=== PATIENT | male | born 1950 | race Two or more races ===

== ENCOUNTER → 2017-10-10 18:30 | Outpatient (CLI) | payer MEDICARE, OTHER, SELFPAY ==
[2017-10-10 21:44] LABS: M R Staph aureus DNA By PCR Negative (Negative); Probe Check PASS; Staph aureus DNA By PCR POSITIVE (Negative)
== END ==
PROVIDERS: Visit Provider Podiatrist
DX: L97.512 Non-pressure chronic ulcer of other part of right foot with fat layer exposed (principal); L03.031 Cellulitis of right toe; M79.674 Pain in right toe(s)
CPT/HCPCS: 87070; 87077; 87186; 87205; 87640

== ENCOUNTER 2024-02-24 14:03 | Emergency (ER) | payer MEDICARE, SELFPAY ==
[2024-02-24 14:06] VITALS: BP 115/86; PULSE 81; RESP 18; TEMP 36.4; O2SAT 98; BMI 25.9
--- NOTE | 2024-02-24 14:35 | EX.ED.DYSGE1 ---
HPI History of Present Illness Chief Complaint: Complaint [facility] Medical History (Updated 02/24/24 @ 16:[address] Herberth Richardson, DO) Cataracts, bilateral History of UTI Urinary frequency Nocturia Hematuria Shoulder pain Obesity Prediabetes IBS (irritable bowel syndrome) Hyperlipidemia Orthostatic hypertension HTN (hypertension) History of CVA (cerebrovascular accident) Cervical spine arthritis Cervical spinal stenosis Central apnea HALIE (obstructive sleep apnea) BPH with urinary obstruction Atrial flutter Allergic rhinitis Home Medications ?Medication ?Instructions ?Recorded ?Last Taken ?Type metoprolol tartrate 25 mg tablet 25 mg PO BID 05/01/19 Unknown History aspirin 81 mg chewable tablet 1 tab PO DAILY 05/08/19 Unknown History pravastatin 80 mg tablet 80 mg PO QHS 03/25/20 Unknown History acetaminophen 500 mg capsule 1,000 mg PO TID 02/24/24 Unknown History bisacodyl 10 mg rectal suppository 10 mg [place] DAILY PRN constipation 02/24/24 Unknown History (Laxative (bisacodyl)) cephalexin 500 mg capsule 500 mg PO TID #20 caps 02/24/24 Unknown Rx cholecalciferol (vitamin D3) 50 2,000 unit PO DAILY 02/24/24 Unknown History mcg (2,000 unit) capsule clopidogrel 75 mg tablet 75 mg PO DAILY 02/24/24 Unknown History furosemide 20 mg tablet 20 mg PO Q OTHER DAY 02/24/24 Unknown History loratadine 10 mg capsule (Allergy 10 mg PO DAILY 02/24/24 Unknown History Relief (loratadine)) melatonin 3 mg capsule 3 mg PO QHS 02/24/24 Unknown History omeprazole 20 mg capsule,delayed 20 mg PO DAILY 02/24/24 Unknown History release sulfamethoxazole 800 1 tab PO BID 7 days #14 tabs 02/24/24 Unknown Rx mg-trimethoprim 160 mg tablet (Bactrim DS) trazodone 150 mg tablet 150 mg PO QHS 02/24/24 Unknown History Allergy/AdvReac Type Severity Reaction Status Date / Time tamsulosin (From Flomax) Allergy Unknown Itching Verified 02/24/24 14:14 Family History Mother Breast cancer Colon cancer Father Cardiac disorder Other Myocardial infarction Surgical History History of umbilical hernia repair History of nasal septoplasty History of cystoscopy History of colonoscopy Social History (Updated 06/03/20 @ 19:[address] Peter Jameson MD) Smoking Status: Never smoker alcohol intake: former substance use type: does not use EXAM Physical Exam Const Vital Signs: 02/24/24 14:06 02/24/24 16:05 Temperature 97.6 F L Temperature Source Oral Pulse Rate 81 84 Respiratory Rate 18 16 Blood Pressure 115/86 H 123/79 H Blood Pressure Mean 95 93 Pulse Ox 98 96 Oxygen Delivery Method Room Air Room Air [facility] Narrative Medical decision making narrative: HISTORY OF PRESENT ILLNESS: 73-year-old male presents concern for hematuria. Per triage report patient is chronically catheterized. Per report at the [facility]'s penitentiary catheter was removed secondary to swelling of the penis. REVIEW OF SYSTEMS: Pertinent positives: Hematuria, penile swelling Pertinent negatives: Vomiting, fever PHYSICAL EXAM: Nursing triage notes reviewed, Vital signs reviewed Constitutional: please see mdm HENT: MMM Eyes: Pupils equal round and reactive to light, Extraocular muscles intact Neck: No stridor, no JVD, full neck ROM Lungs: Clear to auscultation, No wheezing or rales. No increased work of breathing, no conversational dyspnea, no accessory muscle use, no nasal flaring. No respiratory distress noted Heart: Regular rate and rhythm, No murmurs, No rubs and No gallops, 2+ distal pulses (radial, femoral, posterior tibial) in all extremities Abdomen: Soft, there is no tenderness, rigidity, rebound or guarding, no obvious peritoneal signs, no palpable pulsatile abdominal masses, no auscultated abdominal bruit : No CVAT performed news internship in room showed erythema and swelling noted to the glans penis and foreskin. The foreskin is easily retractable although it is tender to do so. No signs of paraphimosis or phimosis noted. There is no discharge. There is erosion noted to the urethral meatus likely secondary to chronic Gentile catheterization and poor position alteration at the patient's nursing facility. Extremities: No edema Neuro: No new focal neurological deficits, cranial nerves II through XII intact, 5/5 strength in all present extremities. Intact sensation to light touch in all present extremities, 2+ reflexes bilateral patella tendons. Skin: Erythema noted to the glans penis and foreskin. No perineal TTP, scrotal edema, crepitus or bullae. MEDICAL DECISION MAKING: Chief Complaint: Hematuria, penile swelling External records reviewed: Takes aspirin and Plavix Factors affecting care: n BPH Social determinants of health: [facility] resident History obtained from others: none Consults: none MDM Narrative: Patient was initially hemodynamically stable, afebrile nontoxic-appearing. Exam significant erythema tenderness and swelling noted to the glans penis consistent likely balanitis. There is no sign of paraphimosis or phimosis however. No sign of fungal infection. There is erosion noted to the urethral meatus. I considered the following differential diagnosis: Balanitis, UTI, kidney failure, urinary retention, Sunshine's gangrene. There is no clinical evidence suggest Sunshine's gangrene. Specifically no perineal tenderness, crepitus, bullae or tenderness out of proportion to exam. A Gentile catheter was placed given the patient's history of BPH and Frequent urinary retention. ALL IMAGES (IF OBTAINED) HAVE BEEN PERSONALLY REVIEWED AND INTERPRETED BY MYSELF. CBC with no leukocytosis to suggest demonstration, noted mild anemia, no thrombocytopenia Lactate is wnl indicating no end-organ hypoperfusion and/or hypoxia. BMP without evidence of significant electrolyte abnormalities, no anion gap, no acute kidney injury. Urinalysis without evidence of specific infection. Given erythema, swelling concern for bacterial balanitis of the glans and foreskin. Will give Keflex and Bactrim for broad coverage. Strict return precautions were discussed. Urology follow-up recommended. The patient and/or family, caregivers express understanding. The patient and/or family, caregivers agrees with the plan. Shared decision making: I will have a discussion with the patient and or visitors regarding risk/benefits of further testing or admission. They will be made aware of of the risk/benefits inherent in this decision they will be given the opportunity to voice understanding. Total critical care time today provided was at least 0 minutes. This excludes separately billable procedures. Critical care time (if documented) is secondary to the patient having high probability of clinically significant/life threatening deterioration in the patient's condition which required my urgent intervention. Impression: 1. Balanitis 2. Chronic Gentile catheters 3. History of BPH Dispo: Discharge to penitentiary This note was generated with Newsel[employer]ation software. It may contain incorrect words, spelling, and punctuation that were not noted in review of the chart prior to signing. Lab Data Labs: Laboratory Results - last 24 hr 02/24/24 02/24/24 15:09 15:10 WBC 10.2 RBC 3.64 L Hgb 11.2 L Hct 35.1 L MCV 96.4 H MCH 30.8 MCHC 31.9 L RDW Std Deviation 55.4 H RDW Coeff of Lisa 15.5 H Plt Count 239 MPV 10.6 Sodium 142 Potassium 4.0 Chloride 110 H Carbon Dioxide 25.0 Anion Gap 7 BUN 26 H Creatinine 0.91 Estim Creat Clear Calc 67.86 Est GFR (MDRD) Af Amer 105 Est GFR (MDRD) Non-Af 87 BUN/Creatinine Ratio 28.7 H Glucose 111 H Lactic Acid 1.4 Calcium 8.9 Urine Color Yellow Urine Clarity Clear Urine pH 6.0 Ur Specific [place] 1.015 Urine Protein 15 H Urine Glucose (UA) Normal Urine Ketones Negative Urine Occult Blood 150 H Urine Nitrite Negative Urine Bilirubin Negative Urine Urobilinogen Normal Ur Leukocyte Esterase 100 H Urine RBC 25-50 SEEN Urine WBC 0-5 SEEN Ur Squamous Epith Cells 0 SEEN Urine Bacteria 1+ Urine Mucus RARE Discharge Plan Triage Chief Complaint: Complaint ED Provider: Herberth Richardson Dx/Rx/DC Orders Clinical Impression: Acute balanitis due to infection Instructions: ED Balanitis Prescriptions: New cephalexin 500 mg capsule 500 mg PO TID Qty: 20 0RF sulfamethoxazole-trimethoprim [Bactrim DS] 800-160 mg tablet 1 tab PO BID 7 Days Qty: 14 0RF No Action aspirin 81 mg tablet,chewable 1 tab PO DAILY Patient Comments: Chew and swallow 1 tablet by mouth daily starting 04-24-2019 metoprolol tartrate 25 mg tablet 25 mg PO BID pravastatin 80 mg tablet 80 mg PO QHS acetaminophen 500 mg capsule 1,000 mg PO TID bisacodyl [Laxative (bisacodyl)] 10 mg suppository 10 mg MA DAILY PRN (Reason: constipation) furosemide 20 mg tablet 20 mg PO Q OTHER DAY Allergy Relief (loratadine) 10 mg capsule 10 mg PO DAILY melatonin 3 mg capsule 3 mg PO QHS omeprazole 20 mg capsule,delayed release(DR/EC) 20 mg PO DAILY clopidogrel 75 mg tablet 75 mg PO DAILY trazodone 150 mg tablet 150 mg PO QHS cholecalciferol (vitamin D3) 50 mcg (2,000 unit) capsule 2,000 unit PO DAILY Primary Care Provider: Justice Chen Referrals: Amado Edwards MD [Med Staff - Active Staff] - Activity Restrictions/Additional Instructions: Thank you for trusting us with your care today! Please take antibiotics as prescribed until course complete to alleviate glands and foreskin infection. Please take Tylenol (2 pills, 650 mg), ibuprofen (2 pills, 400 mg) every 6 hours as needed for pain and fever control. Please return to the emergency department if your symptoms change or worsen. Please follow with your primary care physician and urology for further outpatient evaluation and management. Print Language: [place] Disposition Disposition: Home, Self Care
[2024-02-24] MEDS: Ondansetron ODT 4 MG Tablet PO (15:09)
[2024-02-24] MEDS: Morphine 4 MG/ML Syringe IM (15:09)
[2024-02-24] MEDS: Lidocaine Jelly 2% 20 ML Syringe (URO-JET) 1 APPLIC TOPICAL (15:09)
[2024-02-24 15:17] LABS: Squamous Epithelial Cells - UA 0 SEEN /hpf (0-5)
[2024-02-24 15:20] LABS: Color, Urine Yellow (Yellow); Glucose, Dipstick Normal (Normal); Ketone-Dipstick Negative (Negative); Leukocyte Esterase-Dipstick 100 /ul (Negative); Nitrite-Dipstick Negative (Negative); Occult Blood-Urine 150 /ul (Negative); Protein-Dipstick 15 mg/dl (Negative); Specific Gravity, Urine 1.015 (1.002-1.030); Urine Bilirubin Dipstick Negative (Negative); Urine Clarity Clear (Clear); Urine Urobilinogen Normal (Normal)
[2024-02-24 15:28] LABS: Hematocrit 35.1 % (40-54); Hemoglobin 11.2 g/dL (13.0-16.5); Mean Corp Hgb Conc 31.9 g/dL (32-36); Mean Corpuscular Hgb 30.8 pg (27.0-32.0); Mean Corpuscular Volume 96.4 fL (80-94); Mean Platelet Vol. 10.6 fl (6.2-12.0); Platelet Count 239 K/mm3 (150-450); RBC Distribution Width CV 15.5 % (11.6-14.6); RBC Distribution Width SD 55.4 fl (35.1-43.9); Red Blood Count 3.64 M/mm3 (4.6-6.2); White Blood Count 10.2 K/mm3 (4.4-11.0)
[2024-02-24 15:43] LABS: Anion Gap 7 (5-15); BUN 26 mg/dL (7-18); BUN/Creat Ratio 28.7 RATIO (10-20); Calcium,Total 8.9 mg/dL (8.5-10.1); Chloride 110 mmol/L (98-107); Creatinine, Serum 0.91 mg/dL (0.70-1.30); EST Glomerular Filtration Rate 87 mL/min (>60); Est Glom Filt Rate - Afr Amer 105 mL/min (>60); Estimated Creatinine Clearance 67.86 ml/min; Glucose 111 mg/dL (74-106); Sodium Level 142 mmol/L (136-145)
[2024-02-24 15:47] LABS: Lactic Acid 1.4 mmol/L (0.4-1.9)
[2024-02-24 15:48] LABS: Bacteria 1+ /hpf (None Seen); Mucous, Urine RARE /hpf (<or=2+); Red Blood Cells-Urine 25-50 SEEN /hpf (0-5); White Blood Cells 0-5 SEEN /hpf (0-5)
[2024-02-24 16:05] VITALS: BP 123/79; PULSE 84; RESP 16; O2SAT 96
[2024-02-24] MEDS: Cephalexin 250 MG Capsule 500 MG PO (16:31)
[2024-02-24] MEDS: Smz/Tmp Ds Tablet 1 TABLET PO (16:31)
--- NOTE | 2024-02-24 17:02 | ED.RN ---
REPORT CALLED TO ERNST SORTO AT THE [facility]. INSTRUCTED THAT DILIGENT CATHETER CARE MUST BE FOLLOWED. NURSE AGREEABLE. STATES SHE WILL NOTIFY FAMILY THAT PT WILL BE RETURNING TO THE [facility]
== END 2024-02-24 17:16 | disposition home or self-care (01) ==
PROVIDERS: Emergency Provider Emergency Medicine; PCP Family Medicine; Visit Provider Emergency Medicine
DX: N48.1 Balanitis (principal); R31.9 Hematuria, unspecified; E78.5 Hyperlipidemia, unspecified; Z79.82 Long term (current) use of aspirin; N36.8 Other specified disorders of urethra; N40.0 Benign prostatic hyperplasia without lower urinary tract symptoms; I10 Essential (primary) hypertension; Z86.73 Personal history of transient ischemic attack (TIA), and cerebral infarction without residual deficits; G47.33 Obstructive sleep apnea (adult) (pediatric)
CPT/HCPCS: 51702; 96372; 99285; 80048; 81001; 83605; 85027; A4216

== ENCOUNTER 2024-02-25 14:07 | Emergency (ER) | payer MEDICARE, SELFPAY ==
[2024-02-25 14:07] VITALS: BP 129/67; PULSE 87; RESP 16; TEMP 36.6; O2SAT 96; BMI 27.3
--- NOTE | 2024-02-25 14:38 | EX.ED.GUMALE ---
HPI History of Present Illness Chief Complaint: Male Pain/Injury Narrative Narrative: Chief complaint and HPI: problem. 73-year-old male with history of BPH, HTN, HLD presents for evaluation penile glans pain and swelling. Patient resides at a correction. He has history of a chronic catheter. Couple days ago patient developed swelling and pain of the penile gland in which she was seen in our emergency department yesterday for. He was diagnosed with balanitis. He was placed on Keflex and Bactrim. He had a new Gentile catheter placed as well as basic labs performed that were unremarkable and a UA that was negative for UTI. Patient states he presents back today as he feels like the swelling has slightly worsened. Review of systems: See HPI Medications: As listed on the chart Allergies: As listed on the chart PFSH: Per chart Vital signs: As listed on the chart. Reviewed. Physical exam: Gen: A&O x3, NAD Head: Normocephalic, atraumatic Eyes: No sclera icterus, conjunctiva clear ENT: Moist mucous membranes CV: Regular rate Resp: Nonlabored respiration GI: Abd soft, non-distended, non-tender, no r/r/g : Patient has erythema and swelling noted to the glans penis and forced. Area is tender to palpation. He has a paraphimosis. No penile discharge. There is erosion noted to the urethral meatus likely secondary to chronic Gentile catheterization. Normal lie and position of the testicles. No testicular tenderness, masses, or skin changes. No rashes. Musc: Full ROM, no deformity Skin: Warm, dry Neuro: Alert, oriented, grossly intact, sensation intact Psych: Cooperative, appropriate mood and affect [facility] Medical History (Updated 02/25/24 @ 16:[address] Herb Mcqueen, DO) Cataracts, bilateral History of UTI Urinary frequency Nocturia Hematuria Shoulder pain Obesity Prediabetes IBS (irritable bowel syndrome) Hyperlipidemia Orthostatic hypertension HTN (hypertension) History of CVA (cerebrovascular accident) Cervical spine arthritis Cervical spinal stenosis Central apnea HALIE (obstructive sleep apnea) BPH with urinary obstruction Atrial flutter Allergic rhinitis Home Medications ?Medication ?Instructions ?Recorded ?Last Taken ?Type metoprolol tartrate 25 mg tablet 25 mg PO BID 05/01/19 Unknown History aspirin 81 mg chewable tablet 1 tab PO DAILY 05/08/19 Unknown History pravastatin 80 mg tablet 80 mg PO QHS 03/25/20 Unknown History acetaminophen 500 mg capsule 1,000 mg PO TID 02/24/24 Unknown History bisacodyl 10 mg rectal suppository 10 mg [place] DAILY PRN constipation 02/24/24 Unknown History (Laxative (bisacodyl)) cephalexin 500 mg capsule 500 mg PO TID #20 caps 02/24/24 Unknown Rx cholecalciferol (vitamin D3) 50 2,000 unit PO DAILY 02/24/24 Unknown History mcg (2,000 unit) capsule clopidogrel 75 mg tablet 75 mg PO DAILY 02/24/24 Unknown History furosemide 20 mg tablet 20 mg PO Q OTHER DAY 02/24/24 Unknown History loratadine 10 mg capsule (Allergy 10 mg PO DAILY 02/24/24 Unknown History Relief (loratadine)) melatonin 3 mg capsule 3 mg PO QHS 02/24/24 Unknown History omeprazole 20 mg capsule,delayed 20 mg PO DAILY 02/24/24 Unknown History release sulfamethoxazole 800 1 tab PO BID 7 days #14 tabs 02/24/24 Unknown Rx mg-trimethoprim 160 mg tablet (Bactrim DS) trazodone 150 mg tablet 150 mg PO QHS 02/24/24 Unknown History Allergy/AdvReac Type Severity Reaction Status Date / Time tamsulosin (From Flomax) Allergy Unknown Itching Verified 02/25/24 14:08 Family History Mother Breast cancer Colon cancer Father Cardiac disorder Other Myocardial infarction Surgical History History of umbilical hernia repair History of nasal septoplasty History of cystoscopy History of colonoscopy Social History (Updated 06/03/20 @ 19:[address] Peter Jameson MD) Smoking Status: Never smoker alcohol intake: former substance use type: does not use EXAM Physical Exam Const Vital Signs: 02/25/24 14:07 02/25/24 15:31 Temperature 98 F 98 F Temperature Source Temporal Pulse Rate 87 100 Respiratory Rate 16 20 H Blood Pressure 129/67 H 114/80 Blood Pressure Mean 87 91 Pulse Ox 96 100 Oxygen Delivery Method Room Air MDM MDM MDM Narrative Medical decision making narrative: 73-year-old male with history of BPH, HTN, HLD presents for evaluation of penile glans pain and swelling. See physical exam findings. Patient just had basic labs and UA performed yesterday that was unremarkable. He just had his Gentile changed. I do not think any laboratory workup is needed at this time. On physical exam, patient has a paraphimosis. Using compression and sugar with retraction I was able to reduce the paraphimosis. Foreskin was reduced over the glans penis and in proper position. Patient's pain improved. Patient was monitored in our emergency department without any recurrence. Gentile catheter still in place with good urine output. Patient is stable to discharge back to his care facility. I did call the care facility personally myself and spoke to the nursing staff taking care of him. They were educated that they need to monitor for reoccurrence or worsening symptoms. If they recur he needs to return back to the emergency department. They were educated to make sure that the foreskin is always in proper position. They confirmed understanding. Patient is to follow-up with urology and PCP. Patient was also educated on this and confirmed understanding. Impression: 1. Paraphimosis, manually reduced Discharge Plan Triage Chief Complaint: Male Pain/Injury ED Provider: Herb Mcqueen Dx/Rx/DC Orders Clinical Impression: Paraphimosis Instructions: ED Paraphimosis, Surgically Treated, ED Urinary Retention, Male Prescriptions: No Action aspirin 81 mg tablet,chewable 1 tab PO DAILY Patient Comments: Chew and swallow 1 tablet by mouth daily starting 04-24-2019 metoprolol tartrate 25 mg tablet 25 mg PO BID pravastatin 80 mg tablet 80 mg PO QHS acetaminophen 500 mg capsule 1,000 mg PO TID bisacodyl [Laxative (bisacodyl)] 10 mg suppository 10 mg [place] DAILY PRN (Reason: constipation) furosemide 20 mg tablet 20 mg PO Q OTHER DAY Allergy Relief (loratadine) 10 mg capsule 10 mg PO DAILY melatonin 3 mg capsule 3 mg PO QHS omeprazole 20 mg capsule,delayed release(DR/EC) 20 mg PO DAILY clopidogrel 75 mg tablet 75 mg PO DAILY trazodone 150 mg tablet 150 mg PO QHS cholecalciferol (vitamin D3) 50 mcg (2,000 unit) capsule 2,000 unit PO DAILY cephalexin 500 mg capsule 500 mg PO TID Qty: 20 0RF sulfamethoxazole-trimethoprim [Bactrim DS] 800-160 mg tablet 1 tab PO BID 7 Days Qty: 14 0RF Primary Care Provider: Justice Chen Referrals: Amado Edwards MD [Med Staff - Active Staff] - 3-5 Days Justice Chen MD [Primary Care Provider] - 3-5 Days Activity Restrictions/Additional Instructions: Make sure that patient's foreskin is in proper position. If you retract it back please put it back in position. Monitor for recurrence or worsening symptoms such as pain and swelling. If any of these recur patient needs to be seen immediately back in the emergency department. Follow-up with urology and primary care physician. Print Language: Sinhala Disposition Disposition: Home, Self Care
[2024-02-25] MEDS: Morphine 4 MG/ML Syringe IM (14:53)
[2024-02-25] MEDS: fentaNYL 100 MCG/2 ML Ampul IV (15:04)
[2024-02-25] MEDS: fentaNYL 100 MCG/2 ML Ampul 50 MCG IV (15:28)
[2024-02-25 15:31] VITALS: BP 114/80; PULSE 100; RESP 20; TEMP 36.6; O2SAT 100
== END 2024-02-25 16:52 | disposition home or self-care (01) ==
PROVIDERS: Emergency Provider Surgery; PCP Family Medicine; Visit Provider Surgery
DX: N47.2 Paraphimosis (principal); I10 Essential (primary) hypertension; E78.5 Hyperlipidemia, unspecified; N48.1 Balanitis; N40.0 Benign prostatic hyperplasia without lower urinary tract symptoms; Z86.73 Personal history of transient ischemic attack (TIA), and cerebral infarction without residual deficits; G47.33 Obstructive sleep apnea (adult) (pediatric)
CPT/HCPCS: 96372; 96374; 99285; A4216

== ENCOUNTER 2024-02-27 14:28 | Inpatient (IN) | payer MEDICARE, SELFPAY ==
[2024-02-27 14:29] VITALS: PULSE 124; RESP 16; TEMP 36.6; O2SAT 94; BMI 27.0
--- NOTE | 2024-02-27 14:42 | CT_ITS ---
INDICATION: vomiting, back pain EXAMINATION: CT ABDOMEN AND PELVIS WITH CONTRAST - CT Abdomen And Pelvis W/ Contrast Injection TECHNIQUE: Helically acquired images were obtained of the abdomen and pelvis following IV contrast. A radiation dose optimization technique was used for this scan. IV Contrast dosage and agent: 100 cc [id number] Oral contrast: None. COMPARISON: None. FINDINGS: LOWER CHEST: Small bibasilar pleural effusions. No cardiomegaly or pericardial effusion. LIVER: Homogeneous. No focal mass. GALLBLADDER AND BILIARY TREE: No calcified gallstones. No gallbladder distension or wall edema. No intra- or extrahepatic biliary ductal dilation. PANCREAS: No focal cystic or solid mass. SPLEEN: Normal size without focal cystic or solid mass. ADRENAL GLANDS: No nodules. KIDNEYS AND URETERS: Cortical cyst right lower pole. No hydronephrosis. PERITONEUM: No ascites or free air. BOWEL: No evidence of acute appendicitis. Diffusely increased small bowel fluid contents with minimal distention. No focal inflammatory change. LYMPH NODES: No enlarged mesenteric or retroperitoneal lymph nodes. VESSELS: Aorta is non-dilated. URINARY BLADDER: Drained by Gentile catheter. REPRODUCTIVE ORGANS: No pelvic masses. ABDOMINAL WALL: No discrete abdominal or pelvic wall hernia. BONES: No acute or aggressive abnormality. CT/Abdomen/Pelvis W IV Cont ONLY IMPRESSION: Nonspecific small bowel changes which may indicate enteritis in the appropriate clinical setting. Small bibasilar pleural effusions. Electronically Signed: Ck Jenkins MD at 16:25 EST ,
[2024-02-27 15:03] LABS: Color, Urine Brown (Yellow); Glucose, Dipstick Normal (Normal); Ketone-Dipstick 5 mg/dl (Negative); Leukocyte Esterase-Dipstick 100 /ul (Negative); Nitrite-Dipstick Negative (Negative); Protein-Dipstick 100 mg/dl (Negative); Urine Clarity Cloudy (Clear); Urine Urobilinogen Normal (Normal); Urine pH 6.5 (5.0 - 8.0)
--- NOTE | 2024-02-27 15:09 | EX.ED.DYSGE1 ---
HPI <Dr. Brianda Fuentes, DO - Last Filed: 03/01/24 13:30> History of Present Illness Chief Complaint: Nausea/Vomiting Informant: patient Narrative Narrative: Patient is a 73-year-old male with history of atrial flutter (does not appear to be on any blood thinners), IBS, HALIE, hypertension, hyperlipidemia, IBS and indwelling Gentile catheter with history of bacteremia presenting from nursing facility for nausea and vomiting. Reportedly patient had 19 episodes of vomiting this morning. His urine has been dark brown/reddish in color. He received Zofran around 1130 today with no improvement. When asked why he is here patient tells me that his back hurts. He does not tell me about the vomiting till prompted by myself. He denies any abdominal pain at this time. Patient was seen in our ER 2 days ago for paraphimosis which was reduced in the emergency room. The day before that patient was seen in the ER for hematuria. He has a chronic indwelling Gentile catheter. [facility] <Dr. Brianda Fuentes, - Last Filed: 03/01/24 13:30> [facility] Medical History Cataracts, bilateral History of UTI Urinary frequency Nocturia Hematuria Shoulder pain Obesity Prediabetes IBS (irritable bowel syndrome) Hyperlipidemia Orthostatic hypertension HTN (hypertension) History of CVA (cerebrovascular accident) Cervical spine arthritis Cervical spinal stenosis Central apnea HALIE (obstructive sleep apnea) BPH with urinary obstruction Atrial flutter Allergic rhinitis Home Medications ?Medication ?Instructions ?Recorded ?Last Taken ?Type metoprolol tartrate 25 mg tablet 25 mg PO BID 05/01/19 Unknown History aspirin 81 mg chewable tablet 1 tab PO DAILY 05/08/19 Unknown History pravastatin 80 mg tablet 80 mg PO QHS 03/25/20 Unknown History acetaminophen 500 mg capsule 1,000 mg PO TID 02/24/24 Unknown History bisacodyl 10 mg rectal suppository 10 mg [place] DAILY PRN constipation 02/24/24 Unknown History (Laxative (bisacodyl)) cholecalciferol (vitamin D3) 50 2,000 unit PO DAILY 02/24/24 Unknown History mcg (2,000 unit) capsule clopidogrel 75 mg tablet 75 mg PO DAILY 02/24/24 Unknown History furosemide 20 mg tablet 20 mg PO Q OTHER DAY 02/24/24 Unknown History loratadine 10 mg capsule (Allergy 10 mg PO DAILY 02/24/24 Unknown History Relief (loratadine)) melatonin 3 mg capsule 3 mg PO QHS 02/24/24 Unknown History omeprazole 20 mg capsule,delayed 20 mg PO DAILY 02/24/24 Unknown History release trazodone 150 mg tablet 150 mg PO QHS 02/24/24 Unknown History Lactobacillus rhamnosus GG 10 1 cap PO BID 02/27/24 Unknown History billion cell capsule (Culturelle) ondansetron HCl 4 mg tablet 4 mg PO Q6H 02/27/24 Unknown History cefdinir 300 mg capsule 300 mg PO BID #1 cap 02/28/24 Unknown Rx Allergy/AdvReac Type Severity Reaction Status Date / Time tamsulosin (From Flomax) Allergy Unknown Itching Verified 02/27/24 14:35 Family History Mother Breast cancer Colon cancer Father Cardiac disorder Other Myocardial infarction Surgical History History of umbilical hernia repair History of nasal septoplasty History of cystoscopy History of colonoscopy Social History Smoking Status: Never smoker alcohol intake: former substance use type: does not use ROS <Dr. Brianda Fuentes, - Last Filed: 03/01/24 13:30> ROS ED Constitutional Constitutional ED: Denies fever(s) Respiratory/Chest Respiratory/Chest: Denies cough or dyspnea Gastrointestinal Gastrointestinal: Reports nausea and vomiting; Denies abdominal pain, constipation or diarrhea Genitourinary Genitourinary ED: Reports hematuria Musculoskeletal Musculoskeletal: Reports back pain and myalgias Integumentary Denies rash Hematologic/Lymphatic Hematologic/Lymphatic: Denies easy bleeding EXAM <Dr. Brianda Fuentes DO - Last Filed: 03/01/24 13:30> Physical Exam Const Vital Signs: 02/27/24 14:29 02/27/24 16:28 Temperature 98 F Temperature Source Oral Pulse Rate 124 H 118 H Respiratory Rate 16 Blood Pressure 119/84 H Blood Pressure Mean 95 Pulse Ox 94 96 Oxygen Delivery Method Room Air Room Air Positive well nourished and well developed General Appearance ED: well developed and NAD HEENT Reports dry mucous membranes Mouth ED: Yes dry mucous membranes Mouth: dry mucous membranes Eyes PERRL Neck supple Chest Wall inspection of chest normal and palpation of chest normal Resp normal respiratory effort and clear to auscultation bilaterally Cardio regular rhythm Rate: tachycardic GI GI Narrative: Mild tenderness palpation suprapubic region, nondistended Auscultation: hyperactive bowel sounds Palpation: soft; Negative for guarding Narrative: Indwelling Gentile catheter in place, tenderness at the penis Back/Spine Back/Spine Narrative: Patient rolled to the side. Has diffuse tenderness to his entire back and does not localize to one area. Extremity normal to inspection Neuro Neuro Narrative: Patient seems mildly confused Sensorium / Orientation: alert Motor Exam: general weakness Skin no rashes or lesions noted Skin Narrative: Subtle bruising noted to the left lower abdomen <Dr. Luis Daniel Sales MD - Last Filed: 02/27/24 17:32> Physical Exam Const Vital Signs: 02/27/24 14:29 02/27/24 16:28 Temperature 98 F Temperature Source Oral Pulse Rate 124 H 118 H Respiratory Rate 16 Blood Pressure 119/84 H Blood Pressure Mean 95 Pulse Ox 94 96 Oxygen Delivery Method Room Air Room Air MDM <Dr. Brianda Fuentes DO - Last Filed: 03/01/24 13:30> [facility] MDM Narrative Medical decision making narrative: Patient evaluated for nausea and vomiting as well as hematuria in his Gentile catheter that all developed today. Patient is she just complaining of back pain. He does not initially recall why he is here. Upon arrival patient is tachycardic. Does have a history of atrial fibrillation is unclear if he was able to keep his metoprolol down today. Will be given IV fluids as he clinically appears dehydrated. Differential includes renal colic, sepsis, hematuria, Gentile catheter malfunction/urinary retention, small bowel obstruction, volvulus and diverticulitis as well as pneumonia/aspiration pneumonia. Differential also includes viral syndrome/influenza and gastroenteritis. Patient given IV fluids and Zofran in the emergency room. CBC shows a chronic anemia with a hemoglobin Emmet 0.9 with normal white cell count of 7.8. Kidney function is at baseline with a creatinine of 1.08. Liver enzymes and lipase largely normal. High since he troponin abnormal at 56. Urinalysis does show significant hematuria (greater than 100 red blood cells), 50-100 white blood cells and rare bacteria. Will send for culture. Chest x-ray viewed by myself does not show any acute infiltrate. EKG shows atrial fibrillation with RVR. Patient ordered cardizem bolus. CT of the abdomen and pelvis shows no significant enteritis. Patient signed out to oncoming physician pending heart rate control, p.o. challenge and anticipate admission to the hospital for intractable nausea and vomiting. Lab Data Attestation: I reviewed the patient's lab results. Labs: Laboratory Results - last 24 hr 02/27/24 02/27/24 14:49 15:26 WBC 7.8 RBC 3.88 L Hgb 11.9 L Hct 37.4 L MCV 96.4 H MCH 30.7 MCHC 31.8 L RDW Std Deviation 55.2 H RDW Coeff of Lisa 15.4 H Plt Count 250 MPV 10.2 Immature Gran % (Auto) 0.300 Neut % (Auto) 90.3 H Lymph % (Auto) 4.8 L [place] % (Auto) 3.4 Eos % (Auto) 0.9 Baso % (Auto) 0.3 Absolute Neuts (auto) 7.0 Absolute Lymphs (auto) 0.37 L Nucleated RBC % 0 PT 15.5 H INR 1.2 Sodium 140 Potassium 4.4 Chloride 112 H Carbon Dioxide 22.0 Anion Gap 6 BUN 25 H Creatinine 1.08 Estim Creat Clear Calc 57.18 Est GFR (MDRD) Af Amer 86 Est GFR (MDRD) Non-Af 71 BUN/Creatinine Ratio 23.1 H Glucose 97 Lactic Acid 1.9 Calcium 8.8 Total Bilirubin 0.50 AST 30 ALT 22 Alkaline Phosphatase 117 Total Creatine Kinase 46 Troponin I High Sens 56 Total Protein 7.1 Albumin 2.5 L Globulin 4.6 H Albumin/Globulin Ratio 0.5 L Lipase 22 Urine Color Brown Urine Clarity Cloudy Urine pH 6.5 Ur Specific [place] 1.020 Urine Protein 100 H Urine Glucose (UA) Normal Urine Ketones 5 H Urine Occult Blood 250 H Urine Nitrite Negative Urine Bilirubin 1 H Urine Urobilinogen Normal Ur Leukocyte Esterase 100 H Urine RBC > 100 SEEN Urine WBC 50-100 SEEN Ur Squamous Epith Cells 5-10 SEEN Urine Bacteria RARE Urine Mucus 2+ Radiography Diagnostic Testing: Clinical Impression(s) from Imaging Studies Abdomen/Pelvis CT 02/27/24 14:42 IMPRESSION: Nonspecific small bowel changes which may indicate enteritis in the appropriate clinical setting. Small bibasilar pleural effusions. Electronically Signed: Ck Jenkins MD at 16:25 EST , Chest X-Ray 02/27/24 15:46 IMPRESSION: No radiographic evidence of acute cardiopulmonary disease. Electronically Signed: Ck Jenkins MD at 16:26 EST , Rhythm Strip Rhythm Strip: A-fib Rate: 127 Ectopy: None EKG Initial EKG: Attestation: I personally reviewed and interpreted this EKG as follows: Interpretation: Atrial Fibrillation Comments: Atrial fibrillation with rapid ventricular response at a rate of 127 with PVCs Left axis deviation Minimal voltage criteria for LVH Nonspecific T wave changes <Dr. Luis Daniel Sales MD - Last Filed: 02/27/24 17:32> MDM MDM Narrative Medical decision making narrative: Patient evaluated for nausea and vomiting as well as hematuria in his Gentile catheter that all developed today. Patient is she just complaining of back pain. He does not initially recall why he is here. Upon arrival patient is tachycardic. Does have a history of atrial fibrillation is unclear if he was able to keep his metoprolol down today. Will be given IV fluids as he clinically appears dehydrated. Differential includes renal colic, sepsis, hematuria, Gentile catheter malfunction/urinary retention, small bowel obstruction, volvulus and diverticulitis as well as pneumonia/aspiration pneumonia. Differential also includes viral syndrome/influenza and gastroenteritis. Patient given IV fluids and Zofran in the emergency room. CBC shows a chronic anemia with a hemoglobin Emmet 0.9 with normal white cell count of 7.8. Kidney function is at baseline with a creatinine of 1.08. Liver enzymes and lipase largely normal. High since he troponin abnormal at 56. Urinalysis does show significant hematuria (greater than 100 red blood cells), 50-100 white blood cells and rare bacteria. Will send for culture. Chest x-ray viewed by myself does not show any acute infiltrate. EKG shows atrial fibrillation with RVR. Patient ordered cardizem bolus. CT of the abdomen and pelvis shows no significant enteritis. Patient signed out to oncoming physician pending heart rate control, p.o. challenge and anticipate admission to the hospital for intractable nausea and vomiting. Patient turned over to me from the initiating physician around 4:45 PM. Labs show chronic changes. Urine is being cultured to determine if he has a UTI or not. CAT scan shows enteritis but no obstruction. I spoke with hospitalist will be admitted. Clinically I think is a viral gastroenteritis with nausea vomiting diarrhea. She will be rule out UTI. 3 he has acute on chronic A-fib. Currently his rates in the 90s after IV Cardizem. History & Record Review Discussion w/independent historian: Patient Additional record(s) reviewed:: Prior inpatient record, Prior outpatient record, Prior ED visit and Prior labs Lab Data Lab results narrative: CBC shows white count of 7. H&H 11.9 and 37. Platelets 250. PT/INR of 15 and 1. Electrolytes show a gap of 6. BUN 25 creatinine of 1. Liver enzymes unremarkable. Lipase 22. Urinalysis and chronic indwelling Gentile catheter shows 250 occult blood. No nitrates. Cranial 100 red cells, 5200 white cells and 5-10 epithelial cells. Rare bacteria and a culture being sent. Labs: Laboratory Results - last 24 hr 02/27/24 02/27/24 14:49 15:26 WBC 7.8 RBC 3.88 L Hgb 11.9 L Hct 37.4 L MCV 96.4 H MCH 30.7 MCHC 31.8 L RDW Std Deviation 55.2 H RDW Coeff of Lisa 15.4 H Plt Count 250 MPV 10.2 Immature Gran % (Auto) 0.300 Neut % (Auto) 90.3 H Lymph % (Auto) 4.8 L [place] % (Auto) 3.4 Eos % (Auto) 0.9 Baso % (Auto) 0.3 Absolute Neuts (auto) 7.0 Absolute Lymphs (auto) 0.37 L Nucleated RBC % 0 PT 15.5 H INR 1.2 Sodium 140 Potassium 4.4 Chloride 112 H Carbon Dioxide 22.0 Anion Gap 6 BUN 25 H Creatinine 1.08 Estim Creat Clear Calc 57.18 Est GFR (MDRD) Af Amer 86 Est GFR (MDRD) Non-Af 71 BUN/Creatinine Ratio 23.1 H Glucose 97 Lactic Acid 1.9 Calcium 8.8 Total Bilirubin 0.50 AST 30 ALT 22 Alkaline Phosphatase 117 Total Creatine Kinase 46 Troponin I High Sens 56 Total Protein 7.1 Albumin 2.5 L Globulin 4.6 H Albumin/Globulin Ratio 0.5 L Lipase 22 Urine Color Brown Urine Clarity Cloudy Urine pH 6.5 Ur Specific [place] 1.020 Urine Protein 100 H Urine Glucose (UA) Normal Urine Ketones 5 H Urine Occult Blood 250 H Urine Nitrite Negative Urine Bilirubin 1 H Urine Urobilinogen Normal Ur Leukocyte Esterase 100 H Urine RBC > 100 SEEN Urine WBC 50-100 SEEN Ur Squamous Epith Cells 5-10 SEEN Urine Bacteria RARE Urine Mucus 2+ Radiography Diagnostic Testing: Clinical Impression(s) from Imaging Studies Abdomen/Pelvis CT 02/27/24 14:42 IMPRESSION: Nonspecific small bowel changes which may indicate enteritis in the appropriate clinical setting. Small bibasilar pleural effusions. Electronically Signed: Ck Jenkins MD at 16:25 EST , Chest X-Ray 02/27/24 15:46 IMPRESSION: No radiographic evidence of acute cardiopulmonary disease. Electronically Signed: Ck Jenkins MD at 16:26 EST , Discharge Plan Dx/Rx/DC Orders Clinical Impression: Hematuria, Nausea and vomiting, Acute dehydration, Atrial fibrillation with rapid ventricular response, Viral gastroenteritis Disposition Disposition: Acute Care Hospital [facility] Discharge Date/Time: 02/27/24 18:37
[2024-02-27 15:22] LABS: Urine Bilirubin Dipstick 1 mg/dL (Negative)
[2024-02-27 15:27] LABS: Bacteria RARE /hpf (None Seen); Mucous, Urine 2+ /hpf (<or=2+); Occult Blood-Urine 250 /ul (Negative); Red Blood Cells-Urine > 100 SEEN /hpf (0-5); Squamous Epithelial Cells - UA 5-10 SEEN /hpf (0-5); White Blood Cells 50-100 SEEN /hpf (0-5)
[2024-02-27] MEDS: 0.9% Normal Saline (1000mL) 1,000 ML 999 ML IV (15:34)
[2024-02-27] MEDS: Ondansetron 4 MG/2 ML Vial IV (15:34)
--- NOTE | 2024-02-27 15:39 | ED.RN ---
Patient transported to radiology
[2024-02-27 15:41] LABS: Absolute Lymphocyte Count 0.37 X10^3/uL (0.83-4.51); Basophil# 0.02 X10^3/uL; Basophil% 0.3 % (0-1); Eosinophil# 0.07 X10^3/uL; Eosinophils% 0.9 % (0-5); Hematocrit 37.4 % (40-54); Hemoglobin 11.9 g/dL (13.0-16.5); Lymphocyte # 0.37 X10^3/ul (0.83-4.51); Lymphocyte % 4.8 % (19-41); Mean Corp Hgb Conc 31.8 g/dL (32-36); Mean Corpuscular Hgb 30.7 pg (27.0-32.0); Mean Corpuscular Volume 96.4 fL (80-94); Mean Platelet Vol. 10.2 fl (6.2-12.0); Monocyte# 0.26 X10^3/uL; Monocyte% 3.4 % (0-10); NRBC Flagged by Analyzer 0 % (0-5); Neutrophil # 7.01 X10^3/uL (2.7-7.7); Neutrophil % 90.3 % (47-70); POSITIVE DIFFERENTIAL YES; Platelet Count 250 K/mm3 (150-450); RBC Distribution Width CV 15.4 % (11.6-14.6); RBC Distribution Width SD 55.2 fl (35.1-43.9); Red Blood Count 3.88 M/mm3 (4.6-6.2); White Blood Count 7.8 K/mm3 (4.4-11.0)
--- NOTE | 2024-02-27 15:46 | RAD_ITS ---
INDICATION: cough EXAMINATION/TECHNIQUE: X-RAY - portable semiupright AP chest x-ray COMPARISON: None. FINDINGS: LINES/DEVICES: None. LUNGS: No consolidation, edema or effusion. No pneumothorax. MEDIASTINUM AND CARDIOVASCULAR STRUCTURES: Cardiac silhouette within upper normal limits. BONES AND SOFT TISSUES: No acute findings. Right shoulder prosthesis. Chronic fracture mid left clavicle. RAD/Chest 1 View (Portable) IMPRESSION: No radiographic evidence of acute cardiopulmonary disease. Electronically Signed: Ck Jenkins MD at 16:26 EST ,
[2024-02-27 15:53] LABS: International Normalized Ratio 1.2; Prothrombin Time (Protime)PT. 15.5 SECONDS (11.7-14.9)
[2024-02-27 16:07] LABS: ALB/GLOB Ratio 0.5 RATIO (0.9-2.4); AST(SGOT) 30 U/L (15-37); Alanine Aminotransfer ALT/SGPT 22 U/L (16-61); Albumin, Serum 2.5 g/dL (3.2-5.0); Alkaline Phosphatase 117 U/L (45-117); Anion Gap 6 (5-15); BUN 25 mg/dL (7-18); BUN/Creat Ratio 23.1 RATIO (10-20); Calcium,Total 8.8 mg/dL (8.5-10.1); Chloride 112 mmol/L (98-107); Creatinine, Serum 1.08 mg/dL (0.70-1.30); EST Glomerular Filtration Rate 71 mL/min (>60); Est Glom Filt Rate - Afr Amer 86 mL/min (>60); Estimated Creatinine Clearance 57.18 ml/min; Globulin 4.6 g/dL (2.2-4.2); Glucose 97 mg/dL (74-106); Lipase 22 U/L (13-75); Potassium 4.4 mmol/L (3.5-5.1); Protein, Total 7.1 g/dL (6.4-8.2); Sodium Level 140 mmol/L (136-145); Troponin-I HS 56 pg/mL (3.0-78.0)
[2024-02-27 16:14] LABS: CPK Total, Creatine Kinase 46 U/L (39-308); Lactic Acid 1.9 mmol/L (0.4-1.9)
--- NOTE | 2024-02-27 16:15 | EKG12_ITS ---
Test Reason : N/V Blood Pressure : */* mmHG Vent. Rate : 127 BPM Atrial Rate : * BPM P-R Int : * ms QRS Dur : 90 ms QT Int : 324 ms P-R-T Axes : * -16 90 degrees QTcB Int : 470 ms Atrial fibrillation with rapid ventricular response with premature ventricular or aberrantly conducte d complexes Minimal voltage criteria for LVH, may be normal variant ( Albaro product ) Nonspecific ST and T wave abnormality Abnormal ECG Confirmed by SHABANA URBAN, MASSIEL ([id number]), brands editor CANDIDO ROSE ([id number]) on 02/29/2024 9:36:50 AM Referred By: Confirmed By: MASSIEL DONALD MD
[2024-02-27 16:28] VITALS: BP 119/84; PULSE 118; O2SAT 96
[2024-02-27] MEDS: dilTIAZem 25 MG/5 ML Vial 20 MG IV BOLUS (16:59)
[2024-02-27 18:10] VITALS: BP 125/67; PULSE 107; RESP 19; TEMP 37.2; O2SAT 93
--- NOTE | 2024-02-27 18:47 | HP.PCM.HOS_ITS ---
HPI - General General Date of Admission: 02/27/24 Date of Service: 02/27/24 Chief Complaint: Nausea and vomiting HPI Narrative MAC AVALOS, is a 73 M with history of atrial flutter, hypertension, hyperlipidemia, IBS, chronic disability due to cervical spinal stenosis, cervical spine arthritis, chronic indwelling Gentile 2/2 BPH with urinary obstruction, prediabetes who presents to the ED from his nursing facility for concerns regarding nausea and vomiting starting this morning. This was associated with dark brown/reddish urine that was noted by his nurses at the SNF. Per the nursing report he received Zofran today but there was no improvement. The patient endorses ongoing back pain, is not new and has been a chronic symptom. He says he had 1 or 2 episodes of vomiting but does not remember much. Does not endorse any fever, no decrease in appetite. During our interview he was able to swallow water well without any nausea vomiting. He was recently seen in the ED for concerns regarding paraphimosis in the setting of chronic catheter placement. Using compression and sugar retraction the paraphimosis was reduced. This is eased patient's pain. Today at the time of presentation in the ED, Blood pressure 125/67, pulse 107, respiratory 19, oxygen saturation 93% temperature 98.9, WBC 7.8, hemoglobin 11.9, platelet count 50, PT 15.5, sodium 140, potassium 4.4, chloride 112, BUN 25, glucose 97, lactic acid 1.9, calcium 8.8, bilirubin 0.5, AST/ALT 30/22, albumin 2.5, urine showed proteins 100 mg/DL, ketones 5, bilirubin 1, urine leukoesterase positive, WBC 50-1000 with rare bacteria and 2+ mucus [facility] Medical History (Updated 02/27/24 @ 17:[address] Luis Daniel Sales MD) Cataracts, bilateral History of UTI Urinary frequency Nocturia Hematuria Shoulder pain Obesity Prediabetes IBS (irritable bowel syndrome) Hyperlipidemia Orthostatic hypertension HTN (hypertension) History of CVA (cerebrovascular accident) Cervical spine arthritis Cervical spinal stenosis Central apnea HALIE (obstructive sleep apnea) BPH with urinary obstruction Atrial flutter Allergic rhinitis Home Medications ?Medication ?Instructions ?Recorded ?Last Taken ?Type metoprolol tartrate 25 mg tablet 25 mg PO BID 05/01/19 Unknown History aspirin 81 mg chewable tablet 1 tab PO DAILY 05/08/19 Unknown History pravastatin 80 mg tablet 80 mg PO QHS 03/25/20 Unknown History acetaminophen 500 mg capsule 1,000 mg PO TID 02/24/24 Unknown History bisacodyl 10 mg rectal suppository 10 mg [place] DAILY PRN constipation 02/24/24 Unknown History (Laxative (bisacodyl)) cephalexin 500 mg capsule 500 mg PO TID #20 caps 02/24/24 Unknown Rx cholecalciferol (vitamin D3) 50 2,000 unit PO DAILY 02/24/24 Unknown History mcg (2,000 unit) capsule clopidogrel 75 mg tablet 75 mg PO DAILY 02/24/24 Unknown History furosemide 20 mg tablet 20 mg PO Q OTHER DAY 02/24/24 Unknown History loratadine 10 mg capsule (Allergy 10 mg PO DAILY 02/24/24 Unknown History Relief (loratadine)) melatonin 3 mg capsule 3 mg PO QHS 02/24/24 Unknown History omeprazole 20 mg capsule,delayed 20 mg PO DAILY 02/24/24 Unknown History release sulfamethoxazole 800 1 tab PO BID 7 days #14 tabs 02/24/24 Unknown Rx mg-trimethoprim 160 mg tablet (Bactrim DS) trazodone 150 mg tablet 150 mg PO QHS 02/24/24 Unknown History Lactobacillus rhamnosus GG 10 1 cap PO BID 02/27/24 Unknown History billion cell capsule (Culturelle) ondansetron HCl 4 mg tablet 4 mg PO Q6H 02/27/24 Unknown History Allergy/AdvReac Type Severity Reaction Status Date / Time tamsulosin (From Flomax) Allergy Unknown Itching Verified 02/27/24 14:35 Family History Mother Breast cancer Colon cancer Father Cardiac disorder Other Myocardial infarction Surgical History History of umbilical hernia repair History of nasal septoplasty History of cystoscopy History of colonoscopy Social History Smoking Status: Never smoker alcohol intake: former substance use type: does not use ROS Constitutional Constitutional: Reports fatigue Vital Signs Vital Signs Vital Signs: 02/27/24 14:29 02/27/24 16:28 02/27/24 18:10 Temperature 98 F 98.9 F Temperature Source Oral Pulse Rate 124 H 118 H 107 H Respiratory Rate 16 19 H Blood Pressure 119/84 H 125/67 H Blood Pressure Mean 95 86 Pulse Ox 94 96 93 Oxygen Delivery Method Room Air Room Air Weight Weight: 177 lb 11.081 oz Body Mass Index (BMI) 27.0 Physical Exam Const alert and oriented x3 HEENT normocephalic Eyes PERRL Neck no lymphadenopathy Resp normal respiratory effort Cardio regular rate GI normal to inspection, nondistended, normoactive bowel sounds Auscultation: hyperactive bowel sounds Extremity normal to inspection Neuro oriented x3 Results Medical Records Data Attestation: I reviewed the patient's medical records Lab / Micro Data Attestation: I reviewed the patient's lab results. 02/27/24 15:26 02/27/24 15:26 Labs: Laboratory Results - last 24 hr 02/27/24 14:49: Urine Color Brown, Urine Clarity Cloudy, Urine pH 6.5, Ur Specific [place] 1.020, Urine Protein 100 H, Urine Glucose (UA) Normal, Urine Ketones 5 H, Urine Occult Blood 250 H, Urine Nitrite Negative, Urine Bilirubin 1 H, Urine Urobilinogen Normal, Ur Leukocyte Esterase 100 H, Urine RBC > 100 SEEN, Urine WBC 50-100 SEEN, Ur Squamous Epith Cells 5-10 SEEN, Urine Bacteria RARE, Urine Mucus 2+ 02/27/24 15:26: WBC 7.8, RBC 3.88 L, Hgb 11.9 L, Hct 37.4 L, MCV 96.4 H, MCH 30.7, MCHC 31.8 L, RDW Std Deviation 55.2 H, RDW Coeff of Lisa 15.4 H, Plt Count 250, MPV 10.2, Immature Gran % (Auto) 0.300, Neut % (Auto) 90.3 H, Lymph % (Auto) 4.8 L, [place] % (Auto) 3.4, Eos % (Auto) 0.9, Baso % (Auto) 0.3, Absolute Neuts (auto) 7.0, Absolute Lymphs (auto) 0.37 L, Nucleated RBC % 0, PT 15.5 H, INR 1.2, Sodium 140, Potassium 4.4, Chloride 112 H, Carbon Dioxide 22.0, Anion Gap 6, BUN 25 H, Creatinine 1.08, Estim Creat Clear Calc 57.18, Est GFR (MDRD) Af Amer 86, Est GFR (MDRD) Non-Af 71, BUN/Creatinine Ratio 23.1 H, Glucose 97, Lactic Acid 1.9, Calcium 8.8, Total Bilirubin 0.50, AST 30, ALT 22, Alkaline Phosphatase 117, Total Creatine Kinase 46, Troponin I High Sens 56, Total Protein 7.1, Albumin 2.5 L, Globulin 4.6 H, Albumin/Globulin Ratio 0.5 L, Lipase 22 Micro: Microbiology 02/27/24 15:12 Mucosa - Nose SARS-CoV-2, Influenza & RSV (PCR) - Final Rhythm Strip Rhythm Strip: A-fib Rate: 127 Ectopy: None Imaging Radiology Impression Abdomen/Pelvis CT 02/27/24 14:42 IMPRESSION: Nonspecific small bowel changes which may indicate enteritis in the appropriate clinical setting. Small bibasilar pleural effusions. Electronically Signed: Ck Jenkins MD at 16:25 EST , Chest X-Ray 02/27/24 15:46 IMPRESSION: No radiographic evidence of acute cardiopulmonary disease. Electronically Signed: Ck Jenkins MD at 16:26 EST , Assessment & Plan Assessment/Plan (1) Viral gastroenteritis: PLAN: Plan 73-year-old male with history of hypertension, cervical spine arthritis, cervical spinal stenosis, chronic urinary tract obstruction, presents to the ED with concerns regarding ongoing nausea and vomiting with imaging findings concerning for nonspecific enteritis and urinary tract infection. #Nausea and vomiting -Could be related to his ongoing viral enteritis -Given the short duration of symptoms does not need any IV antibiotics as possibly viral in nature -Continue to monitor I's and O's -Patient was not endorsing any anorexia or food intolerance -IV Zofran 4 mg as needed -Case management evaluation for discharge and placement #Complicated urinary tract infection -In the setting of longstanding Gentile -Urine cultures -Will start IV ceftriaxone for the urinary tract infection -No pyelonephritis as seen on imaging #Cervical spinal stenosis -Continue pain medications as before -PT/OT #Atrial fibrillation -Rate controlled at this time -Continue metoprolol [home medication] #Hypertension Continue home medications #DVT prophylaxis -Start enoxaparin 40 mg subcut Charges/Coding Visit Charges Inpatient E&M: 87638 Init Hosp L2
[2024-02-27 18:57] VITALS: BMI 25.1
[2024-02-27 18:58] VITALS: BP 132/77; PULSE 108; RESP 26; TEMP 37; O2SAT 100
[2024-02-27] MEDS: Ceftriaxone 1 GM/50 ML BAG IV (20:29)
[2024-02-27 21:20] VITALS: BP 109/68; PULSE 98; RESP 18; TEMP 37; O2SAT 94
[2024-02-27] MEDS: Acetaminophen 500 MG Tablet 1000 MG PO (21:25)
[2024-02-27 21:26] VITALS: PULSE 98
[2024-02-27] MEDS: MELATONIN 3 MG TABLET PO (21:26)
[2024-02-27] MEDS: Pravastatin 80 MG Tablet PO (21:26)
[2024-02-27] MEDS: traZODone 50 MG Tablet 150 MG PO (21:26)
[2024-02-27] MEDS: Metoprolol Tartrate 25 MG Tablet PO (21:26)
[2024-02-28] VITALS (8 sets, daily range): BP systolic 95–126; BP diastolic 63–82; PULSE 77–98; RESP 14–20; TEMP 36.7–37.7; O2SAT 92–95
[2024-02-28] MEDS: 0.9% Normal Saline (500mL Bag) 500 ML 999 ML IV (01:10)
[2024-02-28] MEDS: 0.9% Saline Lock 10 ML Syringe IV ×2 (01:10→02:07)
[2024-02-28] MEDS: Morphine 2 MG/ML Syringe IV (02:07)
[2024-02-28] MEDS: Menthol/Lanolin/Calamine/Znox 113 GM Tube 1 APPLIC TOPICAL (05:42)
[2024-02-28 06:34] LABS: Absolute Lymphocyte Count 0.48 X10^3/uL (0.83-4.51); Absolute Neutrophil Count 3.6 X10^3/uL (2.0-7.7); Basophil# 0.03 X10^3/uL; Basophil% 0.7 % (0-1); Eosinophil# 0.01 X10^3/uL; Eosinophils% 0.2 % (0-5); Hematocrit 31.3 % (40-54); Hemoglobin 10.1 g/dL (13.0-16.5); Lymphocyte # 0.48 X10^3/ul (0.83-4.51); Lymphocyte % 10.6 % (19-41); Mean Corp Hgb Conc 32.3 g/dL (32-36); Mean Corpuscular Hgb 31.4 pg (27.0-32.0); Mean Corpuscular Volume 97.2 fL (80-94); Mean Platelet Vol. 9.9 fl (6.2-12.0); Monocyte# 0.44 X10^3/uL; Monocyte% 9.7 % (0-10); NRBC Flagged by Analyzer 0 % (0-5); Neutrophil # 3.55 X10^3/uL (2.7-7.7); Neutrophil % 78.6 % (47-70); POSITIVE DIFFERENTIAL YES; Platelet Count 210 K/mm3 (150-450); RBC Distribution Width CV 15.6 % (11.6-14.6); RBC Distribution Width SD 55.7 fl (35.1-43.9); Red Blood Count 3.22 M/mm3 (4.6-6.2); White Blood Count 4.5 K/mm3 (4.4-11.0)
[2024-02-28 07:24] LABS: ALB/GLOB Ratio 0.6 RATIO (0.9-2.4); AST(SGOT) 24 U/L (15-37); Alanine Aminotransfer ALT/SGPT 20 U/L (16-61); Albumin, Serum 2.3 g/dL (3.2-5.0); Alkaline Phosphatase 111 U/L (45-117); Anion Gap 5 (5-15); BUN 22 mg/dL (7-18); BUN/Creat Ratio 21.2 RATIO (10-20); Bilirubin, Direct 0.23 mg/dL (0.00-0.30); Calcium,Total 8.4 mg/dL (8.5-10.1); Chloride 111 mmol/L (98-107); Creatinine, Serum 1.04 mg/dL (0.70-1.30); EST Glomerular Filtration Rate 74 mL/min (>60); Est Glom Filt Rate - Afr Amer 89 mL/min (>60); Estimated Creatinine Clearance 59.38 ml/min; Glucose 83 mg/dL (74-106); Magnesium 1.6 mg/dL (1.6-2.6); Phosphorus 3.1 mg/dL (2.5-4.9); Potassium 4.2 mmol/L (3.5-5.1); Protein, Total 6.3 g/dL (6.4-8.2); Sodium Level 139 mmol/L (136-145)
[2024-02-28 07:31] LABS: International Normalized Ratio 1.3; Prothrombin Time (Protime)PT. 16.1 SECONDS (11.7-14.9)
[2024-02-28] MEDS: Enoxaparin 40 MG/0.4 ML Syringe SC (09:05)
[2024-02-28] MEDS: Metoprolol Tartrate 25 MG Tablet PO (09:05)
[2024-02-28] MEDS: Clopidogrel Bisulfate 75 MG Tablet PO (09:06)
[2024-02-28] MEDS: Pantoprazole Sodium 20 MG Tablet PO (09:06)
[2024-02-28] MEDS: Aspirin 81 MG TAB.CHEW PO (09:06)
--- NOTE | 2024-02-28 10:04 | CASEMGMT ---
Discharge Planning A list of SNF providers including quality and resource use data and consistent with the patient's preferred geographic region, medical needs, and insurance network was created in [employer].? This list was provided to the SW. Mel Larson Discharge Planning Asst.
--- NOTE | 2024-02-28 10:12 | CASEMGMT ---
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 They were looking into pt's VA benefits as well. had wanted [facility], but there is a wait list. SW called the [facility], spoke w/Sven. Pt is 10% service connected, and [facility], except [facility] audiology. SW spoke w/pt in room, to inquire what his plan is, to return to [facility] or go elsewhere. Pt inquired about the referrals [facility] had made. SW explained that we are not sure at this point. Pt's agreeable to have SW call in regard to plan. SW called Tresa at [facility], message left. SW called pt's for clarification on the plan. confirms that pt needs to stay at SNF until he is moving well enough to go home. SW spoke w/her about the VA benefits, SW let her know that VA is not going to cover SNF as pt is only 10% service connected. already aware VA would not cover SNF, states she did set up an appt at [facility] for March 14. For now she is agreeable to have pt return to [facility], SNF list declined at this time. SW spoke w/her about [facility], she would prefer this but states she already knows they have a year long wait list. SW encouraged her to call to put pt on the list as sometimes the wait is shorter. She states Baldev has spoken to her about applying for Medicaid as well, she does not seem certain she wants to do this. SW explained that for now we will send the information to [facility] and they will likely need to get precert again, states understanding. SW will keep posted, referral will be sent once PT/OT are completed. BAYRON Suazo
--- NOTE | 2024-02-28 11:40 | CASEMGMT ---
Addendum entered by Mel Larson 02/28/24 11:48: Pt will need new auth to return. Mel Larson DC Planning Asst. Original Note: Discharge Planning Updates sent via [facility] to [place] [facility] [place]. Mel Larson DC Planning Asst.
[2024-02-28 12:53] LABS: Hemoglobin A1c 5.2 % (3.8-5.6)
--- NOTE | 2024-02-28 15:12 | PN.HOSP_ITS ---
Reason for Visit Reason for Visit: Diagnoses Viral intestinal infection, unspecified (02/27/24) Subjective Subjective Patient was seen and examined today, he has had no more nausea and vomiting. Talked to his sister who is visiting him at the time of my examination today. Patient remains in atrial fibrillation, his rate is presently controlled. It does not appear the patient is on any anticoagulation however. Patient is a poor informant. Objective Data Objective Data Vital Signs: Vital Signs Temp Pulse Resp BP Pulse Ox O2 Del Method 99.8 F H 85 20 H 126/63 H 92 Room Air 02/28/24 14:58 02/28/24 14:58 02/28/24 14:58 02/28/24 14:58 02/28/24 14:58 02/28/24 14:58 Oxygen Delivery Method Room Air Weight: 75 kg Body Mass Index (BMI) 25.1 Intake & Output: Intake and Output for Last 24 Hours 02/26/24 02/27/24 02/28/24 23:59 23:59 23:59 Intake Total 1050 / 1050 900 / 900 Output Total 1400 / 1400 Balance 1050 / 450 -500 / -500 Lab / Micro Data 02/28/24 06:05 02/28/24 06:05 Labs: Laboratory Results - last 24 hr 02/27/24 14:49: Urine Color Brown, Urine Clarity Cloudy, Urine pH 6.5, Ur Specific [place] 1.020, Urine Protein 100 H, Urine Glucose (UA) Normal, Urine Ketones 5 H, Urine Occult Blood 250 H, Urine Nitrite Negative, Urine Bilirubin 1 H, Urine Urobilinogen Normal, Ur Leukocyte Esterase 100 H, Urine RBC > 100 SEEN, Urine WBC 50-100 SEEN, Ur Squamous Epith Cells 5-10 SEEN, Urine Bacteria RARE, Urine Mucus 2+ 02/27/24 15:26: WBC 7.8, RBC 3.88 L, Hgb 11.9 L, Hct 37.4 L, MCV 96.4 H, MCH 30.7, MCHC 31.8 L, RDW Std Deviation 55.2 H, RDW Coeff of Lisa 15.4 H, Plt Count 250, MPV 10.2, Immature Gran % (Auto) 0.300, Neut % (Auto) 90.3 H, Lymph % (Auto) 4.8 L, [place] % (Auto) 3.4, Eos % (Auto) 0.9, Baso % (Auto) 0.3, Absolute Neuts (auto) 7.0, Absolute Lymphs (auto) 0.37 L, Nucleated RBC % 0, PT 15.5 H, INR 1.2, Sodium 140, Potassium 4.4, Chloride 112 H, Carbon Dioxide 22.0, Anion Gap 6, BUN 25 H, Creatinine 1.08, Estim Creat Clear Calc 57.18, Est GFR (MDRD) Af Amer 86, Est GFR (MDRD) Non-Af 71, BUN/Creatinine Ratio 23.1 H, Glucose 97, Lactic Acid 1.9, Calcium 8.8, Total Bilirubin 0.50, AST 30, ALT 22, Alkaline Phosphatase 117, Total Creatine Kinase 46, Troponin I High Sens 56, Total Protein 7.1, Albumin 2.5 L, Globulin 4.6 H, Albumin/Globulin Ratio 0.5 L, Lipase 22 02/28/24 06:05: WBC 4.5, RBC 3.22 L, Hgb 10.1 L, Hct 31.3 L, MCV 97.2 H, MCH 31.4, MCHC 32.3, RDW Std Deviation 55.7 H, RDW Coeff of Lisa 15.6 H, Plt Count 210, MPV 9.9, Immature Gran % (Auto) 0.200, Neut % (Auto) 78.6 H, Lymph % (Auto) 10.6 L, [place] % (Auto) 9.7, Eos % (Auto) 0.2, Baso % (Auto) 0.7, Absolute Neuts (auto) 3.6, Absolute Lymphs (auto) 0.48 L, Nucleated RBC % 0, PT 16.1 H, INR 1.3, Sodium 139, Potassium 4.2, Chloride 111 H, Carbon Dioxide 24.0, Anion Gap 5, BUN 22 H, Creatinine 1.04, Estim Creat Clear Calc 59.38, Est GFR (MDRD) Af Amer 89, Est GFR (MDRD) Non-Af 74, BUN/Creatinine Ratio 21.2 H, Glucose 83, Hemoglobin A1c 5.2, Calcium 8.4 L, Phosphorus 3.1, Magnesium 1.6, Total Bilirubin 0.40, Direct Bilirubin 0.23, AST 24, ALT 20, Alkaline Phosphatase 111, Total Protein 6.3 L, Albumin 2.3 L, Globulin 4.0, Albumin/Globulin Ratio 0.6 L, TSH 0.870 Micro: Microbiology 02/27/24 14:49 Urine Catheter - Gentile Urine Culture - Preliminary Culture exhibits no growth. 02/27/24 15:12 Mucosa - Nose SARS-CoV-2, Influenza & RSV (PCR) - Final Radiography Diagnostic Testing: Radiology Impression Abdomen/Pelvis CT 02/27/24 14:42 IMPRESSION: Nonspecific small bowel changes which may indicate enteritis in the appropriate clinical setting. Small bibasilar pleural effusions. Electronically Signed: Ck Jenkins MD at 16:25 EST , Chest X-Ray 02/27/24 15:46 IMPRESSION: No radiographic evidence of acute cardiopulmonary disease. Electronically Signed: Ck Jenkins MD at 16:26 EST , Rhythm Strip Rhythm Strip: A-fib Rate: 127 Ectopy: None Physical Exam Const alert, no apparent distress and average body habitus Constitutional Narrative: Patient appears older than the stated age General Appearance: cooperative, well kempt and well developed Orientation / Consciousness: awake, oriented to person and oriented to place HEENT normocephalic, head/scalp atraumatic and moist oral mucous membranes Eyes PERRL, EOMs intact bilaterally and conjunctivae normal Neck supple, no JVD, thyroid normal and no carotid bruits General: trachea midline Resp normal respiratory effort, no retractions, no use of accessory muscles and clear to auscultation bilaterally Auscultation: Negative for rales, rhonchi or wheezes Cardio S1 normal heart sound, S2 normal heart sound, no rub and no gallops Cardio Narrative: Heart rate and rhythm is irregular, there is a 2/6 systolic murmur noted at the apex GI normal to inspection, nondistended, normoactive bowel sounds, soft to palpation, non-tender and non-distended Extremity no clubbing, cyanosis or edema Skin no rashes or lesions noted General Skin Exam: no breakdown Neuro CN's II-XII intact bilaterally, moves all extremities, no focal motor deficits and no sensory deficits noted Neuro Narrative: Patient is a poor informant at times Sensorium / Orientation: awake, alert, oriented to person and oriented to place Speech: speech normal Psych affect normal Assessment & Plan Assessment/Plan (1) Viral gastroenteritis: PLAN: Plan 1. Viral gastroenteritis-resolved at this time, patient remains free of nausea and vomiting presently, he is on a heart healthy diet #2 acute cystitis related to Gentile catheter use-patient is currently on Rocephin, await urine culture results #3 chronic atrial fibrillation-patient is on rate control medication, I am not sure why he is not anticoagulated and the patient can give me no history #4 essential hypertension-patient will remain on his present medications #5 chronic urinary retention-patient has a Gentile in place #6 cerebrovascular disease-patient is currently on aspirin and clopidogrel Total clinical time spent by myself addressing the patient's medical issues, reviewing all of his data, and collaborating with patient's care team: 35 minutes Charges/Coding Visit Charges Inpatient E&M: 86324 Subs Hosp L2
--- NOTE | 2024-02-28 15:54 | CASEMGMT ---
Discharge Planning [facility] has obtained auth to admit. SW updated. Mel Larson DC Planning Asst
--- NOTE | 2024-02-28 16:07 | CASEMGMT ---
Discharge Planning [facility] notified that pt will return today, possibly after business hours. Green sheet placed in chart. Mel Larson DC Planning Asst.
--- NOTE | 2024-02-28 16:18 | CASEMGMT ---
Social Work We did get precert back for pt to return to [facility], skilled, today. SW informed physician, he will discharge pt. SW let pt know, he is agreeable to return to [facility] today. SW left a message for pt's to let her know pt will return to [facility] today. Green sheet is placed on chart as pt will likely be discharged after this SW is gone for the day. ZOILA Suazo
--- NOTE | 2024-02-28 17:01 | TREXTCAR_ITS ---
Diet Diet Order/Speech Therapy: 02/27/24 18:44 Diet: Cardiac - Heart Healthy Food consistency:: Regular Liquid Consistency:: Regular/Thin Routine Orders/Code Status Code Status: Full Code DC O2, CPAP, BIPAP needs Home O2 Discharge instructions: No Therapies Weight Bearing: Full weight bearing Physical Therapy: Eval and Treat Occupational Therapy: Eval and Treat Problem/Diagnosis (1) Viral gastroenteritis: Status: Acute Code(s): A08.4 - Viral intestinal infection, unspecified Plan 1. Viral gastroenteritis-resolved at this time, patient remains free of nausea and vomiting presently, he is on a heart healthy diet #2 acute cystitis related to Gentile catheter use-I will place the patient on cefdinir 300 mg twice daily #3 chronic atrial fibrillation-patient is on rate control medication, I am not sure why he is not anticoagulated and the patient can give me no history #4 essential hypertension-patient will remain on his present medications #5 chronic urinary retention-patient has a Gentile in place #6 cerebrovascular disease-patient is currently on aspirin and clopidogrel Total clinical time spent by myself addressing the patient's medical issues, reviewing all of his data, and collaborating with patient's care team: 35 minutes Allergies/Procedures Done in Hospital Allergies tamsulosin (From Flomax) Allergy (Unknown, Verified 02/27/24 14:35) Itching Procedures: None Type of Care/Length of Stay Estimated LOS: Convalescent Care Less Than 30 days Type of Care Needed: Skilled Rehab Potential: Good Prognosis: Good Additional Orders/Day of Discharge H&P will serve as current which was dated: 02/27/24 Day of Discharge: 02/28/24 Discharge Plan Admission Admit Date/Time: 02/27/24 17:36 Primary Reason for Your Visit: Gastroenteritis, cystitis Attending Provider: Patrick Davalos Primary Care Provider: Justice Chen Consulting Providers: Lakeisha Samayoa Discharge Orders/Prescriptions Prescriptions: New cefdinir 300 mg capsule 300 mg PO BID Qty: 1 0RF Rx Instructions: Start on 02/28/2024 Continued aspirin 81 mg tablet,chewable 1 tab PO DAILY Patient Comments: Chew and swallow 1 tablet by mouth daily starting 04-24-2019 metoprolol tartrate 25 mg tablet 25 mg PO BID pravastatin 80 mg tablet 80 mg PO QHS acetaminophen 500 mg capsule 1,000 mg PO TID bisacodyl [Laxative (bisacodyl)] 10 mg suppository 10 mg NC DAILY PRN (Reason: constipation) furosemide 20 mg tablet 20 mg PO Q OTHER DAY Allergy Relief (loratadine) 10 mg capsule 10 mg PO DAILY melatonin 3 mg capsule 3 mg PO QHS omeprazole 20 mg capsule,delayed release(DR/EC) 20 mg PO DAILY clopidogrel 75 mg tablet 75 mg PO DAILY trazodone 150 mg tablet 150 mg PO QHS cholecalciferol (vitamin D3) 50 mcg (2,000 unit) capsule 2,000 unit PO DAILY ondansetron HCl 4 mg tablet 4 mg PO Q6H Culturelle 10 billion cell capsule 1 cap PO BID Discontinued cephalexin 500 mg capsule 500 mg PO TID Qty: 20 0RF sulfamethoxazole-trimethoprim [Bactrim DS] 800-160 mg tablet 1 tab PO BID 7 Days Qty: 14 0RF Referrals / Follow Up: Justice Chen MD [Primary Care Provider] - Disposition Disposition (needs filled in before D/C Order can be placed): Longterm Facility
--- NOTE | 2024-02-28 17:06 | DS.PCM_ITS ---
Providers Date of Admission: 02/27/24 Date of Discharge: 02/28/24 Primary Care Physician: Dr. Justice Chen MD Reason For Visit: SHORTNESS OF BREATH Diagnosis Discharge Diagnosis (1) Viral gastroenteritis: Status: Resolved Code(s): A08.4 - Viral intestinal infection, unspecified Plan 1. Viral gastroenteritis-resolved at this time, patient remains free of nausea and vomiting presently, he is on a heart healthy diet #2 acute cystitis related to Gentile catheter use-I will place the patient on cefdinir 300 mg twice daily #3 chronic atrial fibrillation-patient is on rate control medication-patient has a past history of a Watchman implant and therefore is not on anticoagulation #4 essential hypertension-patient will remain on his present medications #5 chronic urinary retention-patient has a Gentile in place #6 cerebrovascular disease-patient is currently on aspirin and clopidogrel Total clinical time spent by myself addressing the patient's medical issues, reviewing all of his data, and collaborating with patient's care team: 35 minutes Medications at Discharge Home Medications metoprolol tartrate 25 mg tablet 25 mg PO BID 05/01/19 aspirin 81 mg chewable tablet 1 tab PO DAILY 05/08/19 pravastatin 80 mg tablet 80 mg PO QHS 03/25/20 acetaminophen 500 mg capsule 1,000 mg PO TID 02/24/24 bisacodyl 10 mg rectal suppository (Laxative (bisacodyl)) 10 mg SD DAILY PRN constipation 02/24/24 cholecalciferol (vitamin D3) 50 mcg (2,000 unit) capsule 2,000 unit PO DAILY 02/24/24 clopidogrel 75 mg tablet 75 mg PO DAILY 02/24/24 furosemide 20 mg tablet 20 mg PO Q OTHER DAY 02/24/24 loratadine 10 mg capsule (Allergy Relief (loratadine)) 10 mg PO DAILY 02/24/24 melatonin 3 mg capsule 3 mg PO QHS 02/24/24 omeprazole 20 mg capsule,delayed release 20 mg PO DAILY 02/24/24 trazodone 150 mg tablet 150 mg PO QHS 02/24/24 Lactobacillus rhamnosus GG 10 billion cell capsule (Culturelle) 1 cap PO BID 02/27/24 ondansetron HCl 4 mg tablet 4 mg PO Q6H 02/27/24 cefdinir 300 mg capsule 300 mg PO BID #1 cap 02/28/24 Hospital Course Operations None Procedures None Summary of Care Provided Minutes Spent on Discharge: 31 Hospital Course: 73-year-old white male was seen in the emergency room at [facility] with complaints of nausea and vomiting, reportedly the patient had 19 episodes of vomiting morning he was seen in the emergency room. Patient currently resides in a retirement for skilled care. Patient had been given antiemetics there without improvement. Patient has a chronic indwelling Gentlie catheter and had complaints of dark brown to reddish urine. Workup in the urgency room showed the patient have a normal white blood cell count, chemistry profile was unremarkable, UA indicated presence of RBCs and WBCs as well as rare bacteria. CT of the abdomen pelvis showed nonspecific small bowel changes which might indicate enteritis. Patient was admitted to PCU for gastroenteritis and urinary tract infection related to his chronic indwelling Gentile, patient was treated with antibiotics and seen by PT and OT. Patient improved during his hospital stay, approval was obtained for the patient to return to his nursing facility for continued skilled services at the time of discharge from the hospital. On 02/28/2024, patient was seen and examined:alert, no apparent distress and average body habitus Constitutional Narrative: Patient appears older than the stated age General Appearance: cooperative, well kempt and well developed Orientation / Consciousness: awake, oriented to person and oriented to place HEENT normocephalic, head/scalp atraumatic and moist oral mucous membranes Eyes PERRL, EOMs intact bilaterally and conjunctivae normal Neck supple, no JVD, thyroid normal and no carotid bruits General: trachea midline Resp normal respiratory effort, no retractions, no use of accessory muscles and clear to auscultation bilaterally Auscultation: Negative for rales, rhonchi or wheezes Cardio S1 normal heart sound, S2 normal heart sound, no rub and no gallops Cardio Narrative: Heart rate and rhythm is irregular, there is a 2/6 systolic murmur noted at the apex GI normal to inspection, nondistended, normoactive bowel sounds, soft to palpation, non-tender and non-distended Extremity no clubbing, cyanosis or edema Skin no rashes or lesions noted General Skin Exam: no breakdown Neuro CN's II-XII intact bilaterally, moves all extremities, no focal motor deficits and no sensory deficits noted Neuro Narrative: Patient is a poor informant at times Sensorium / Orientation: awake, alert, oriented to person and oriented to place Speech: speech normal Psych affect normal Patient was discharged to the [facility] on 02/28/2024 in stable condition. Weight / BMI Weight Weight: 75 kg Body Mass Index (BMI) 25.1 ABG / Lab / Microbiology Data 02/28/24 06:05 02/28/24 06:05 Laboratory: Laboratory Results - last 24 hr 02/28/24 06:05: WBC 4.5, RBC 3.22 L, Hgb 10.1 L, Hct 31.3 L, MCV 97.2 H, MCH 31.4, MCHC 32.3, RDW Std Deviation 55.7 H, RDW Coeff of Lisa 15.6 H, Plt Count 210, MPV 9.9, Immature Gran % (Auto) 0.200, Neut % (Auto) 78.6 H, Lymph % (Auto) 10.6 L, [place] % (Auto) 9.7, Eos % (Auto) 0.2, Baso % (Auto) 0.7, Absolute Neuts (auto) 3.6, Absolute Lymphs (auto) 0.48 L, Nucleated RBC % 0, PT 16.1 H, INR 1.3, Sodium 139, Potassium 4.2, Chloride 111 H, Carbon Dioxide 24.0, Anion Gap 5, BUN 22 H, Creatinine 1.04, Estim Creat Clear Calc 59.38, Est GFR (MDRD) Af Amer 89, Est GFR (MDRD) Non-Af 74, BUN/Creatinine Ratio 21.2 H, Glucose 83, Hemoglobin A1c 5.2, Calcium 8.4 L, Phosphorus 3.1, Magnesium 1.6, Total Bilirubin 0.40, Direct Bilirubin 0.23, AST 24, ALT 20, Alkaline Phosphatase 111, Total Protein 6.3 L, Albumin 2.3 L, Globulin 4.0, Albumin/Globulin Ratio 0.6 L, TSH 0.870 Microbiology: Microbiology 02/27/24 14:49 Urine Catheter - Gentile Urine Culture - Final Culture exhibits no growth. 02/27/24 15:12 Mucosa - Nose SARS-CoV-2, Influenza & RSV (PCR) - Final D/C Instructions DC O2, CPAP, BIPAP Needs Home O2 Discharge instructions: No Meaningful Use Info Meaningful Use Meaningful Use Diagnoses (Choose all that apply): None applicable Ischemic Stroke Statin Dosing Therapy Reference: STATIN DOSE THERAPY REFERENCE: * Patients > 75 years receive moderate or high dose statin therapy. * Patients 75 years or YOUNGER should receive HIGH intensity statin dose unless contraindicated. You will be required to document reason for non-treatment if statin daily dose does not meet guidelines. HIGH DOSE STATIN THERAPY DAILY Atorvastatin > than or = to 40 mg Rosuvastatin > than or = to 20 mg Amlodipine + Atorvastatin > than or = to 2.5/40 mg Ezetimibe + Simvastatin 10/80 mg Simvastatin 80mg Discharge Plan Admission Admit Date/Time: 02/27/24 17:36 Primary Reason for Your Visit: Gastroenteritis, cystitis Attending Provider: Patrick Davalos Primary Care Provider: Justice Chen Consulting Providers: Lakeisha Samayoa Discharge Orders/Prescriptions Prescriptions: New cefdinir 300 mg capsule 300 mg PO BID Qty: 1 0RF Rx Instructions: Start on 02/28/2024 Continued aspirin 81 mg tablet,chewable 1 tab PO DAILY Patient Comments: Chew and swallow 1 tablet by mouth daily starting 04-24-2019 metoprolol tartrate 25 mg tablet 25 mg PO BID pravastatin 80 mg tablet 80 mg PO QHS acetaminophen 500 mg capsule 1,000 mg PO TID bisacodyl [Laxative (bisacodyl)] 10 mg suppository 10 mg SD DAILY PRN (Reason: constipation) furosemide 20 mg tablet 20 mg PO Q OTHER DAY Allergy Relief (loratadine) 10 mg capsule 10 mg PO DAILY melatonin 3 mg capsule 3 mg PO QHS omeprazole 20 mg capsule,delayed release(DR/EC) 20 mg PO DAILY clopidogrel 75 mg tablet 75 mg PO DAILY trazodone 150 mg tablet 150 mg PO QHS cholecalciferol (vitamin D3) 50 mcg (2,000 unit) capsule 2,000 unit PO DAILY ondansetron HCl 4 mg tablet 4 mg PO Q6H Culturelle 10 billion cell capsule 1 cap PO BID Discontinued cephalexin 500 mg capsule 500 mg PO TID Qty: 20 0RF sulfamethoxazole-trimethoprim [Bactrim DS] 800-160 mg tablet 1 tab PO BID 7 Days Qty: 14 0RF Referrals / Follow Up: Justice Chen MD [Primary Care Provider] - Disposition Disposition (needs filled in before D/C Order can be placed): [facility]ustodial Facility Charges/Coding Visit Charges Inpatient E&M: 75420 Disch Hosp >30min
== END 2024-02-28 21:00 | DRG 699 ==
LOC: ED 17:38 → PCU 18:09
PROVIDERS: Admitting Provider Internal Medicine; Emergency Provider Emergency Medicine; PCP Family Medicine; Visit Provider Internal Medicine
DX: T83.511A Infection and inflammatory reaction due to indwelling urethral catheter, initial encounter (principal); I48.20 Chronic atrial fibrillation, unspecified; N30.01 Acute cystitis with hematuria; A08.4 Viral intestinal infection, unspecified; D64.9 Anemia, unspecified; E86.0 Dehydration; I10 Essential (primary) hypertension; M48.02 Spinal stenosis, cervical region; E78.5 Hyperlipidemia, unspecified; Z79.891 Long term (current) use of opiate analgesic; R33.9 Retention of urine, unspecified
CPT/HCPCS: 36415; 51702; 71045; 74177; 80048; 80053; 81001; 82248; 82550; 83036; 83605; 83690; 83735; 84100; 84443; 84484; 85025; 85027; 85610; 87086; 87631; 93005; 96372; 96374; 97162; 97166; 99285; Q9967; A4216; J2405

== ENCOUNTER 2024-03-31 14:05 | Emergency (ER) | payer MEDICARE, SELFPAY ==
[2024-03-31 14:08] VITALS: PULSE 88; RESP 20; TEMP 36.3; O2SAT 93; BMI 27.2
--- NOTE | 2024-03-31 14:27 | EX.ED.DYSGE1 ---
HPI History of Present Illness Chief Complaint: Complaint Informant: patient Narrative Narrative: Patient is a 73-year-old male with history of atrial flutter (does not appear to be on any blood thinners), IBS, HALIE, hypertension, hyperlipidemia, IBS and indwelling Gentile catheter with history of bacteremia presenting from nursing facility for nausea and vomiting. Reportedly patient had 19 episodes of vomiting this morning. His urine has been dark brown/reddish in color. He received Zofran around 1130 today with no improvement. When asked why he is here patient tells me that his back hurts. He does not tell me about the vomiting till prompted by myself. He denies any abdominal pain at this time. Patient was seen in our ER 2 days ago for paraphimosis which was reduced in the emergency room. The day before that patient was seen in the ER for hematuria. He has a chronic indwelling Gentile catheter. [facility] Medical History (Updated 03/07/24 @ 00:02 by Background Daemon) Atrial fibrillation with rapid ventricular response Acute dehydration Nausea and vomiting Hematuria Paraphimosis Cataracts, bilateral History of UTI Urinary frequency Nocturia Hematuria Shoulder pain Obesity Prediabetes IBS (irritable bowel syndrome) Hyperlipidemia Orthostatic hypertension HTN (hypertension) History of CVA (cerebrovascular accident) Cervical spine arthritis Cervical spinal stenosis Central apnea HALIE (obstructive sleep apnea) BPH with urinary obstruction Atrial flutter Allergic rhinitis Home Medications ?Medication ?Instructions ?Recorded ?Last Taken ?Type metoprolol tartrate 25 mg tablet 25 mg PO BID 05/01/19 Unknown History aspirin 81 mg chewable tablet 1 tab PO DAILY 05/08/19 Unknown History pravastatin 80 mg tablet 80 mg PO QHS 03/25/20 Unknown History acetaminophen 500 mg capsule 1,000 mg PO TID 02/24/24 Unknown History bisacodyl 10 mg rectal suppository 10 mg [place] DAILY PRN constipation 02/24/24 Unknown History (Laxative (bisacodyl)) cholecalciferol (vitamin D3) 50 2,000 unit PO DAILY 02/24/24 Unknown History mcg (2,000 unit) capsule clopidogrel 75 mg tablet 75 mg PO DAILY 02/24/24 Unknown History furosemide 20 mg tablet 20 mg PO Q OTHER DAY 02/24/24 Unknown History loratadine 10 mg capsule (Allergy 10 mg PO DAILY 02/24/24 Unknown History Relief (loratadine)) melatonin 3 mg capsule 3 mg PO QHS 02/24/24 Unknown History omeprazole 20 mg capsule,delayed 20 mg PO DAILY 02/24/24 Unknown History release trazodone 150 mg tablet 150 mg PO QHS 02/24/24 Unknown History Lactobacillus rhamnosus GG 10 1 cap PO BID 02/27/24 Unknown History billion cell capsule (Culturelle) ondansetron HCl 4 mg tablet 4 mg PO Q6H 02/27/24 Unknown History cefdinir 300 mg capsule 300 mg PO BID #1 cap 02/28/24 Unknown Rx Allergy/AdvReac Type Severity Reaction Status Date / Time tamsulosin (From Flomax) Allergy Unknown Itching Verified 02/27/24 14:35 Family History Mother Breast cancer Colon cancer Father Cardiac disorder Other Myocardial infarction Surgical History History of umbilical hernia repair History of nasal septoplasty History of cystoscopy History of colonoscopy Social History Smoking Status: Never smoker alcohol intake: former substance use type: does not use ROS ROS ED Constitutional Constitutional ED: Denies fever(s) Respiratory/Chest Respiratory/Chest: Denies cough or dyspnea Gastrointestinal Gastrointestinal: Reports nausea and vomiting; Denies abdominal pain, constipation or diarrhea Genitourinary Genitourinary ED: Reports hematuria Musculoskeletal Musculoskeletal: Reports back pain and myalgias Integumentary Denies rash Hematologic/Lymphatic Hematologic/Lymphatic: Denies easy bleeding EXAM Physical Exam Const Vital Signs: 03/31/24 14:08 Temperature 97.4 F L Temperature Source Temporal Pulse Rate 88 Respiratory Rate 20 H Pulse Ox 93 Oxygen Delivery Method Room Air Positive well nourished and well developed General Appearance ED: well developed and NAD HEENT Reports dry mucous membranes Mouth ED: Yes dry mucous membranes Mouth: dry mucous membranes Eyes PERRL Neck supple Chest Wall inspection of chest normal and palpation of chest normal Resp normal respiratory effort and clear to auscultation bilaterally Cardio regular rhythm Rate: tachycardic GI GI Narrative: Mild tenderness palpation suprapubic region, nondistended Auscultation: hyperactive bowel sounds Palpation: soft; Negative for guarding Narrative: Indwelling Gentile catheter in place, tenderness at the penis Back/Spine Back/Spine Narrative: Patient rolled to the side. Has diffuse tenderness to his entire back and does not localize to one area. Extremity normal to inspection Neuro Neuro Narrative: Patient seems mildly confused Sensorium / Orientation: alert Motor Exam: general weakness Skin no rashes or lesions noted Skin Narrative: Subtle bruising noted to the left lower abdomen [facility] Narrative Medical decision making narrative: HISTORY OF PRESENT ILLNESS: 73-year-old male who presents with concern for bleeding from the tip of penis after catheter replacement. He states his catheter was replaced last night. He states he had this issue before REVIEW OF SYSTEMS: Pertinent positives: Blood at the urethral meatus Pertinent negatives: Urinary retention, dizziness PHYSICAL EXAM: Nursing triage notes reviewed, Vital signs reviewed Constitutional: please see mdm Lungs: Clear to auscultation, No wheezing or rales. No increased work of breathing, no conversational dyspnea, no accessory muscle use, no nasal flaring. No respiratory distress noted Heart: Regular rate and rhythm, No murmurs, No rubs and No gallops, 2+ distal pulses (radial, femoral, posterior tibial) in all extremities Abdomen: Soft, there is no tenderness, rigidity, rebound or guarding, no obvious peritoneal signs, no palpable pulsatile abdominal masses, no auscultated abdominal bruit : Erosion of urethral meatus, blood at urethral meatus, foreskin is present over the glans penis and is difficult to retract consistent with phimosis, normal testicular lie, no testicular tenderness. Gentile bag with urine. Extremities: No edema Neuro: No new focal neurological deficits, cranial nerves II through XII intact, 5/5 strength in all present extremities. Intact sensation to light touch in all present extremities, 2+ reflexes bilateral patella tendons. Skin: No rash or lesions noted MEDICAL DECISION MAKING: Chief Complaint: Blood at urethral meatus External records reviewed: Medications reviewed: Patient is currently on antiplatelet clopidogrel and aspirin but not on any anticoagulation. Reviewed prior CBC which showed hemoglobin 10.1 Factors affecting care: BPH, chronic Gentile catheterization Social determinants of health: [facility] resident History obtained from others: EMS Consults: none [facility] Narrative: The patient was initially hemodynamically stable, afebrile and nontoxic-appearing. Exam with urethral erosion that appears chronic. Also phimosis with difficulty retracting foreskin. I considered the following differential diagnosis: UTI, urethral trauma, urinary tension, anemia, phimosis and paraphimosis Given report of bleeding will obtain basic labs to assess kidney function, hemoglobin, urinalysis. An attempt to improve retraction of the foreskin I used let and gave systemic narcotics in for follow grams IV morphine. Placed on monitor sugar on the head of the penis to aid in retraction. ALL IMAGES (IF OBTAINED) HAVE BEEN PERSONALLY REVIEWED AND INTERPRETED BY MYSELF. [] The patient and/or family, caregivers express understanding. The patient and/or family, caregivers agrees with the plan. Shared decision making: I will have a discussion with the patient and or visitors regarding risk/benefits of further testing or admission. They will be made aware of of the risk/benefits inherent in this decision they will be given the opportunity to voice understanding. Total critical care time today provided was at least 0 [] minutes. This excludes separately billable procedures. Critical care time (if documented) is secondary to the patient having high probability of clinically significant/life threatening deterioration in the patient's condition which required my urgent intervention. Impression: [] Dispo: [] This note was generated with ipadio dictation software. It may contain incorrect words, spelling, and punctuation that were not noted in review of the chart prior to signing. History & Record Review Discussion w/independent historian: Patient Additional record(s) reviewed:: Prior inpatient record, Prior outpatient record, Prior ED visit and Prior labs Lab Data Attestation: I reviewed the patient's lab results. Lab results narrative: CBC shows white count of 7. H&H 11.9 and 37. Platelets 250. PT/INR of 15 and 1. Electrolytes show a gap of 6. BUN 25 creatinine of 1. Liver enzymes unremarkable. Lipase 22. Urinalysis and chronic indwelling Gentile catheter shows 250 occult blood. No nitrates. Cranial 100 red cells, 5200 white cells and 5-10 epithelial cells. Rare bacteria and a culture being sent. Rhythm Strip Rhythm Strip: A-fib Rate: 127 Ectopy: None EKG Initial EKG: Attestation: I personally reviewed and interpreted this EKG as follows: Interpretation: Atrial Fibrillation Comments: Atrial fibrillation with rapid ventricular response at a rate of 127 with PVCs Left axis deviation Minimal voltage criteria for LVH Nonspecific T wave changes Discharge Plan Triage Chief Complaint: Complaint ED Provider: Debra,Herberth Dx/Rx/DC Orders Prescriptions: No Action aspirin 81 mg tablet,chewable 1 tab PO DAILY Patient Comments: Chew and swallow 1 tablet by mouth daily starting 04-24-2019 metoprolol tartrate 25 mg tablet 25 mg PO BID pravastatin 80 mg tablet 80 mg PO QHS acetaminophen 500 mg capsule 1,000 mg PO TID bisacodyl [Laxative (bisacodyl)] 10 mg suppository 10 mg [place] DAILY PRN (Reason: constipation) furosemide 20 mg tablet 20 mg PO Q OTHER DAY Allergy Relief (loratadine) 10 mg capsule 10 mg PO DAILY melatonin 3 mg capsule 3 mg PO QHS omeprazole 20 mg capsule,delayed release(DR/EC) 20 mg PO DAILY clopidogrel 75 mg tablet 75 mg PO DAILY trazodone 150 mg tablet 150 mg PO QHS cholecalciferol (vitamin D3) 50 mcg (2,000 unit) capsule 2,000 unit PO DAILY ondansetron HCl 4 mg tablet 4 mg PO Q6H Culturelle 10 billion cell capsule 1 cap PO BID cefdinir 300 mg capsule 300 mg PO BID Qty: 1 0RF Rx Instructions: Start on 02/28/2024 Primary Care Provider: Kendrick Sellers Referrals: Justice Chen MD [Med Staff - Active Staff] - Print Language: Mexican
[2024-03-31 14:29] VITALS: BP 164/115
[2024-03-31] MEDS: Lidocaine/Epi/Tetracaine 50 ML 1 APPLIC TOPICAL (14:57)
[2024-03-31] MEDS: Morphine 4 MG/ML Syringe IV (14:58)
--- NOTE | 2024-03-31 15:02 | EDS_ITS ---
HPI History of Present Illness Chief Complaint: Complaint [facility] Medical History (Updated 03/31/24 @ 16:[address] Herberth Richardson, DO) Atrial fibrillation with rapid ventricular response Acute dehydration Nausea and vomiting Hematuria Paraphimosis Cataracts, bilateral History of UTI Urinary frequency Nocturia Hematuria Shoulder pain Obesity Prediabetes IBS (irritable bowel syndrome) Hyperlipidemia Orthostatic hypertension HTN (hypertension) History of CVA (cerebrovascular accident) Cervical spine arthritis Cervical spinal stenosis Central apnea HALIE (obstructive sleep apnea) BPH with urinary obstruction Atrial flutter Allergic rhinitis Home Medications ?Medication ?Instructions ?Recorded ?Last Taken ?Type metoprolol tartrate 25 mg tablet 25 mg PO BID 05/01/19 Unknown History aspirin 81 mg chewable tablet 1 tab PO DAILY 05/08/19 Unknown History pravastatin 80 mg tablet 80 mg PO QHS 03/25/20 Unknown History acetaminophen 500 mg capsule 1,000 mg PO TID 02/24/24 Unknown History bisacodyl 10 mg rectal suppository 10 mg [place] DAILY PRN constipation 02/24/24 Unknown History (Laxative (bisacodyl)) cholecalciferol (vitamin D3) 50 2,000 unit PO DAILY 02/24/24 Unknown History mcg (2,000 unit) capsule clopidogrel 75 mg tablet 75 mg PO DAILY 02/24/24 Unknown History furosemide 20 mg tablet 20 mg PO Q OTHER DAY 02/24/24 Unknown History loratadine 10 mg capsule (Allergy 10 mg PO DAILY 02/24/24 Unknown History Relief (loratadine)) melatonin 3 mg capsule 3 mg PO QHS 02/24/24 Unknown History omeprazole 20 mg capsule,delayed 20 mg PO DAILY 02/24/24 Unknown History release trazodone 150 mg tablet 150 mg PO QHS 02/24/24 Unknown History Lactobacillus rhamnosus GG 10 1 cap PO BID 02/27/24 Unknown History billion cell capsule (Culturelle) ondansetron HCl 4 mg tablet 4 mg PO Q6H 02/27/24 Unknown History cefdinir 300 mg capsule 300 mg PO BID #1 cap 02/28/24 Unknown Rx ciprofloxacin HCl 500 mg tablet 500 mg PO BID 5 days #10 TABLETS 03/31/24 Unknown Rx Allergy/AdvReac Type Severity Reaction Status Date / Time tamsulosin (From Flomax) Allergy Unknown Itching Verified 02/27/24 14:35 Family History Mother Breast cancer Colon cancer Father Cardiac disorder Other Myocardial infarction Surgical History History of umbilical hernia repair History of nasal septoplasty History of cystoscopy History of colonoscopy Social History Smoking Status: Never smoker alcohol intake: former substance use type: does not use EXAM Physical Exam Const Vital Signs: 03/31/24 14:08 03/31/24 14:29 03/31/24 16:05 Temperature 97.4 F L Temperature Source Temporal Pulse Rate 88 81 Respiratory Rate 20 H 18 Blood Pressure 164/115 H 144/104 H Blood Pressure Mean 131 117 Pulse Ox 93 95 Oxygen Delivery Method Room Air Room Air 03/31/24 18:00 03/31/24 19:45 03/31/24 19:47 Temperature 97.8 F 97.8 F Temperature Source Oral Pulse Rate 74 102 H 102 H Respiratory Rate 18 16 16 Blood Pressure 148/99 H 163/87 H 136/87 H Blood Pressure Mean 115 112 103 Pulse Ox 98 94 94 Oxygen Delivery Method Room Air MDM MDM MDM Narrative Medical decision making narrative: HISTORY OF PRESENT ILLNESS: 73-year-old male who presents with concern for bleeding from the tip of penis after catheter replacement. He states his catheter was replaced last night. He states he had this issue before he states since he had a catheter placed unable to retract his foreskin. He notes significant pain and swelling. Denies testicular tenderness. Denies urinary retention.. REVIEW OF SYSTEMS: Pertinent positives: Blood at the urethral meatus Pertinent negatives: Urinary retention, dizziness PHYSICAL EXAM: Nursing triage notes reviewed, Vital signs reviewed Constitutional: please see mdm Lungs: Clear to auscultation, No wheezing or rales. No increased work of breathing, no conversational dyspnea, no accessory muscle use, no nasal flaring. No respiratory distress noted Heart: Regular rate and rhythm, No murmurs, No rubs and No gallops, 2+ distal pulses (radial, femoral, posterior tibial) in all extremities Abdomen: Soft, there is no tenderness, rigidity, rebound or guarding, no obvious peritoneal signs, no palpable pulsatile abdominal masses, no auscultated abdominal bruit : Erosion of urethral meatus, blood at urethral meatus, foreskin is present over the glans penis and is difficult to retract consistent with phimosis, normal testicular lie, no testicular tenderness. Gentile bag with urine. Extremities: No edema Neuro: No new focal neurological deficits, cranial nerves II through XII intact, 5/5 strength in all present extremities. Intact sensation to light touch in all present extremities, 2+ reflexes bilateral patella tendons. Skin: No rash or lesions noted MEDICAL DECISION MAKING: Chief Complaint: Blood at urethral meatus External records reviewed: Medications reviewed: Patient is currently on antiplatelet clopidogrel and aspirin but not on any anticoagulation. Reviewed prior CBC which showed hemoglobin 10.1 Factors affecting care: BPH, chronic Gentile catheterization Social determinants of health: [facility] resident History obtained from others: EMS Consults: none MDM Narrative: The patient was initially hemodynamically stable, afebrile and nontoxic- appearing. Exam with urethral erosion that appears chronic. Also phimosis with difficulty retracting foreskin. I considered the following differential diagnosis: UTI, urethral trauma, urinary retension, anemia, phimosis and paraphimosis There was clear flow of urine to the patient's catheter making urinary retention less likely. Given report of bleeding will obtain basic labs to assess kidney function, hemoglobin, urinalysis. An attempt to improve retraction of the foreskin I used topical LET, ice and gave systemic narcotics with 4 mg of IV morphine. After these interventions patient's phimosis was reduced with retraction of the foreskin and complete resolution of symptoms. ALL IMAGES (IF OBTAINED) HAVE BEEN PERSONALLY REVIEWED AND INTERPRETED BY MYSELF. CBC without significant anemia BMP without evidence of significant electrolyte abnormalities, no anion gap, no acute kidney injury. UA shows evidence of inflammation will give prophylactic antibiotics given recent urethral manipulation. Patient is appropriate discharge home with a short course of ciprofloxacin (5 mg twice daily for 5 days) to prophylactically treat any UTI inflammation. Discussed following up with urology. Discussed with [facility]. Nurse here will educate [facility] about proper Gentile placement to avoid future issues. The patient and/or family, caregivers express understanding. The patient and/or family, caregivers agrees with the plan. Shared decision making: I will have a discussion with the patient and or visitors regarding risk/benefits of further testing or admission. They will be made aware of of the risk/benefits inherent in this decision they will be given the opportunity to voice understanding. Total critical care time today provided was at least 0 minutes. This excludes separately billable procedures. Critical care time (if documented) is secondary to the patient having high probability of clinically significant/life threatening deterioration in the patient's condition which required my urgent intervention. Impression: 1. Traumatic Gentile insertion 2. Phimosis 3. Chronic Gentile catheterization Dispo: Discharge home This note was generated with [employer] dictation software. It may contain incorrect words, spelling, and punctuation that were not noted in review of the chart prior to signing. Lab Data Labs: Laboratory Results - last 24 hr 03/31/24 03/31/24 15:10 15:36 WBC 10.3 RBC 3.90 L Hgb 11.9 L Hct 36.5 L MCV 93.6 MCH 30.5 MCHC 32.6 RDW Std Deviation 52.9 H RDW Coeff of Lisa 15.4 H Plt Count 202 MPV 10.0 Immature Gran % (Auto) 0.500 Neut % (Auto) 77.8 H Lymph % (Auto) 10.9 L Mcpherson % (Auto) 8.6 Eos % (Auto) 1.6 Baso % (Auto) 0.6 Absolute Neuts (auto) 8.0 H Absolute Lymphs (auto) 1.12 Nucleated RBC % 0 Sodium 139 Potassium 3.7 Chloride 110 H Carbon Dioxide 24.0 Anion Gap 6 BUN 18 Creatinine 0.90 Estim Creat Clear Calc 68.61 Est GFR (MDRD) Af Amer 106 Est GFR (MDRD) Non-Af 88 BUN/Creatinine Ratio 20.1 H Glucose 108 H Calcium 9.4 Urine Color Yellow Urine Clarity Sl. Cloudy Urine pH 6.0 Ur Specific [place] 1.010 Urine Protein 100 H Urine Glucose (UA) Normal Urine Ketones Negative Urine Occult Blood 250 H Urine Nitrite Negative Urine Bilirubin Negative Urine Urobilinogen Normal Ur Leukocyte Esterase 500 H Urine RBC 10-25 SEEN Urine WBC 25-50 SEEN Ur Squamous Epith Cells 0 SEEN Urine Bacteria 0 SEEN WBC Casts 0-5 SEEN Urine Mucus 0 SEEN Discharge Plan Triage Chief Complaint: Complaint ED Provider: Herberth Richardson Dx/Rx/DC Orders Clinical Impression: Hematuria, Phimosis of penis Instructions: What is Hematuria?, ED Phimosis Prescriptions: New ciprofloxacin HCl 500 mg tablet 500 mg PO BID 5 Days Qty: 10 0RF No Action aspirin 81 mg tablet,chewable 1 tab PO DAILY Patient Comments: Chew and swallow 1 tablet by mouth daily starting 04-24-2019 metoprolol tartrate 25 mg tablet 25 mg PO BID pravastatin 80 mg tablet 80 mg PO QHS acetaminophen 500 mg capsule 1,000 mg PO TID bisacodyl [Laxative (bisacodyl)] 10 mg suppository 10 mg [place] DAILY PRN (Reason: constipation) furosemide 20 mg tablet 20 mg PO Q OTHER DAY Allergy Relief (loratadine) 10 mg capsule 10 mg PO DAILY melatonin 3 mg capsule 3 mg PO QHS omeprazole 20 mg capsule,delayed release(DR/EC) 20 mg PO DAILY clopidogrel 75 mg tablet 75 mg PO DAILY trazodone 150 mg tablet 150 mg PO QHS cholecalciferol (vitamin D3) 50 mcg (2,000 unit) capsule 2,000 unit PO DAILY ondansetron HCl 4 mg tablet 4 mg PO Q6H Culturelle 10 billion cell capsule 1 cap PO BID cefdinir 300 mg capsule 300 mg PO BID Qty: 1 0RF Rx Instructions: Start on 02/28/2024 Primary Care Provider: Kendrick Sellers Referrals: Amado Edwards MD [Med Staff - Active Staff] - Justice Chen MD [Med Staff - Active Staff] - Activity Restrictions/Additional Instructions: Thank you for trusting us with your care today! Please take Tylenol (2 pills, 650 mg), ibuprofen (2 pills, 400 mg) every 6 hours as needed for pain and fever control. Please take antibiotics until course complete. Please return to the emergency department if your symptoms change or worsen. Please follow with your primary care physician for further outpatient evaluation and management. Please follow-up with urologist Dr. Edwards if you are interested in surgical options including circumcision. Print Language: Yoruba Disposition Disposition: Home, Self Care
[2024-03-31 15:23] LABS: Absolute Lymphocyte Count 1.12 X10^3/uL (0.83-4.51); Basophil# 0.06 X10^3/uL; Basophil% 0.6 % (0-1); Eosinophil# 0.17 X10^3/uL; Eosinophils% 1.6 % (0-5); Hematocrit 36.5 % (40-54); Hemoglobin 11.9 g/dL (13.0-16.5); Lymphocyte # 1.12 X10^3/ul (0.83-4.51); Lymphocyte % 10.9 % (19-41); Mean Corp Hgb Conc 32.6 g/dL (32-36); Mean Corpuscular Hgb 30.5 pg (27.0-32.0); Mean Corpuscular Volume 93.6 fL (80-94); Monocyte# 0.89 X10^3/uL; Monocyte% 8.6 % (0-10); NRBC Flagged by Analyzer 0 % (0-5); Neutrophil # 8.02 X10^3/uL (2.7-7.7); Neutrophil % 77.8 % (47-70); Platelet Count 202 K/mm3 (150-450); RBC Distribution Width CV 15.4 % (11.6-14.6); RBC Distribution Width SD 52.9 fl (35.1-43.9); White Blood Count 10.3 K/mm3 (4.4-11.0)
[2024-03-31 15:37] LABS: Anion Gap 6 (5-15); BUN 18 mg/dL (7-18); BUN/Creat Ratio 20.1 RATIO (10-20); Calcium,Total 9.4 mg/dL (8.5-10.1); Chloride 110 mmol/L (98-107); EST Glomerular Filtration Rate 88 mL/min (>60); Est Glom Filt Rate - Afr Amer 106 mL/min (>60); Estimated Creatinine Clearance 68.61 ml/min; Glucose 108 mg/dL (74-106); Potassium 3.7 mmol/L (3.5-5.1); Sodium Level 139 mmol/L (136-145)
[2024-03-31 15:46] LABS: Bacteria 0 SEEN /hpf (None Seen); Mucous, Urine 0 SEEN /hpf (<or=2+); Squamous Epithelial Cells - UA 0 SEEN /hpf (0-5)
[2024-03-31 15:56] LABS: Color, Urine Yellow (Yellow); Glucose, Dipstick Normal (Normal); Ketone-Dipstick Negative (Negative); Leukocyte Esterase-Dipstick 500 /ul (Negative); Nitrite-Dipstick Negative (Negative); Occult Blood-Urine 250 /ul (Negative); Protein-Dipstick 100 mg/dl (Negative); Urine Bilirubin Dipstick Negative (Negative); Urine Clarity Sl. Cloudy (Clear); Urine Urobilinogen Normal (Normal)
[2024-03-31 16:05] VITALS: BP 144/104; PULSE 81; RESP 18; O2SAT 95
[2024-03-31 16:21] LABS: Red Blood Cells-Urine 10-25 SEEN /hpf (0-5); White Blood Cells 25-50 SEEN /hpf (0-5); White Cell Cast 0-5 SEEN /lpf (None Seen)
[2024-03-31] MEDS: Ciprofloxacin 500 MG Tablet PO (16:35)
[2024-03-31 18:00] VITALS: BP 148/99; PULSE 74; RESP 18; O2SAT 98
[2024-03-31 19:45] VITALS: BP 163/87; PULSE 102; RESP 16; TEMP 36.6; O2SAT 94
[2024-03-31 19:47] VITALS: BP 136/87; PULSE 102; RESP 16; TEMP 36.6; O2SAT 94
[2024-04-01 00:09] VITALS: BP 143/87; PULSE 69; RESP 15; O2SAT 97
[2024-04-01] MEDS: Acetaminophen 500 MG Tablet 1000 MG PO (00:36)
[2024-04-01] MEDS: Ciprofloxacin 500 MG Tablet PO (00:50)
== END 2024-04-01 01:19 | disposition home or self-care (01) ==
PROVIDERS: Emergency Provider Emergency Medicine; PCP Physician Assistant; Referring Provider Emergency Medicine; Visit Provider Emergency Medicine
DX: R31.9 Hematuria, unspecified (principal); N47.1 Phimosis; I10 Essential (primary) hypertension; E78.5 Hyperlipidemia, unspecified; N36.8 Other specified disorders of urethra; Z86.73 Personal history of transient ischemic attack (TIA), and cerebral infarction without residual deficits
CPT/HCPCS: 80048; 81001; 85025; 87077; 87086; 87088; 87186; 96374; 99285; A4216

== ENCOUNTER 2024-04-03 09:55 | Emergency (ER) | payer MEDICARE, SELFPAY ==
[2024-04-03 09:57] VITALS: BP 120/79; PULSE 88; RESP 18; TEMP 36.8; O2SAT 94; BMI 25.4
--- NOTE | 2024-04-03 10:23 | EX.ED.GUMALE ---
HPI History of Present Illness Chief Complaint: Complaint Informant: patient and EMS Narrative Narrative: Patient in a [facility] presenting with 2-3 days gradual onset of painful edema in his penis. He denies any discharge, leaking of urine around the catheter, testicular pain, abdominal pain, vomiting, or any other complaints. He states the nurses were concerned that there was infection. He has never been circumcised. He has a catheter and he is not sure why but states it has been there for months. He states the catheter is always uncomfortable but his penis is more painful than usual right now. [facility] Medical History (Updated 04/03/24 @ 11:[address] Philip Oconnor MD) Paraphimosis Atrial fibrillation with rapid ventricular response Acute dehydration Nausea and vomiting Hematuria Cataracts, bilateral History of UTI Urinary frequency Nocturia Hematuria Shoulder pain Obesity Prediabetes IBS (irritable bowel syndrome) Hyperlipidemia Orthostatic hypertension HTN (hypertension) History of CVA (cerebrovascular accident) Cervical spine arthritis Cervical spinal stenosis Central apnea HALIE (obstructive sleep apnea) BPH with urinary obstruction Atrial flutter Allergic rhinitis Home Medications ?Medication ?Instructions ?Recorded ?Last Taken ?Type metoprolol tartrate 25 mg tablet 25 mg PO BID 05/01/19 Unknown History aspirin 81 mg chewable tablet 1 tab PO DAILY 05/08/19 Unknown History pravastatin 80 mg tablet 80 mg PO QHS 03/25/20 Unknown History acetaminophen 500 mg capsule 1,000 mg PO TID 02/24/24 Unknown History bisacodyl 10 mg rectal suppository 10 mg NM DAILY PRN constipation 02/24/24 Unknown History (Laxative (bisacodyl)) cholecalciferol (vitamin D3) 50 2,000 unit PO DAILY 02/24/24 Unknown History mcg (2,000 unit) capsule clopidogrel 75 mg tablet 75 mg PO DAILY 02/24/24 Unknown History furosemide 20 mg tablet 20 mg PO Q OTHER DAY 02/24/24 Unknown History loratadine 10 mg capsule (Allergy 10 mg PO DAILY 02/24/24 Unknown History Relief (loratadine)) melatonin 3 mg capsule 3 mg PO QHS 02/24/24 Unknown History omeprazole 20 mg capsule,delayed 20 mg PO DAILY 02/24/24 Unknown History release trazodone 150 mg tablet 150 mg PO QHS 02/24/24 Unknown History Lactobacillus rhamnosus GG 10 1 cap PO BID 02/27/24 Unknown History billion cell capsule (Culturelle) ondansetron HCl 4 mg tablet 4 mg PO Q6H 02/27/24 Unknown History cefdinir 300 mg capsule 300 mg PO BID #1 cap 02/28/24 Unknown Rx ciprofloxacin HCl 500 mg tablet 500 mg PO BID 5 days #10 tabs 04/01/24 Unknown Rx (Cipro) Allergy/AdvReac Type Severity Reaction Status Date / Time tamsulosin (From Flomax) Allergy Unknown Itching Verified 02/27/24 14:35 Family History Mother Breast cancer Colon cancer Father Cardiac disorder Other Myocardial infarction Surgical History History of umbilical hernia repair History of nasal septoplasty History of cystoscopy History of colonoscopy Social History Smoking Status: Never smoker alcohol intake: former substance use type: does not use ROS ROS ED Constitutional Constitutional ED: Denies chills or fever(s) Gastrointestinal Gastrointestinal: Denies abdominal pain, nausea or vomiting Genitourinary Genitourinary ED: Reports as per HPI and penile swelling; Denies penile discharge, scrotal pain or scrotal swelling EXAM Physical Exam Const Vital Signs: 04/03/24 09:57 Temperature 98.2 F Temperature Source Temporal Pulse Rate 88 Respiratory Rate 18 Blood Pressure 120/79 Blood Pressure Mean 92 Pulse Ox 94 Oxygen Delivery Method Room Air Positive well nourished and well developed General Appearance ED: well developed and NAD Narrative: Scrotum appears normal, normal testicular lie bilaterally, no swelling, erythema, or tenderness. The penis has a Gentile catheter in place, there is transparent yellow nonbloody urine within the catheter, flowing without difficulty. The glans appears normal. The foreskin appears edematous and is tender. It is not erythematous. There is no discharge on either side of it, it is mobile [id number], and does not appear to be a paraphimosis. Extremity normal to inspection Neuro oriented x3, CN's II-XII intact bilaterally, moves all extremities and no focal motor deficits Psych mental status grossly normal Skin Lesions: no lesions Rashes: no rashes MDM MDM MDM Narrative Medical decision making narrative: This patient has edema of the foreskin only, and the glans is fully visible as the foreskin is retracted behind it, and the glans appears normal without strangulation and it is nontender although the foreskin is very tender. To me it is suspicious for a paraphimosis but there is no strangulation of the glans. I was unsure of what the patient needs, if anything, emergently so I consulted urology and discussed with Dr. Edwards who was able to come to the ED and see the patient, and confirms it is paraphimosis but appears chronic. He attempted to reduce it but the patient would not allow him and he states since it is not strangulating the glans, it would be reasonable to have the patient discharged and follow-up for circumcision in the near future which is office will set up as an outpatient. Management Discussion w/another healthcare provider: [employer] Pick Up [employer] (Jerry, Urology) Discharge Plan Triage Chief Complaint: Complaint Other Complaint: Male Pain/Injury ED Provider: Philip Oconnor Dx/Rx/DC Orders Clinical Impression: Paraphimosis Instructions: ED Paraphimosis, Surgically Treated Prescriptions: No Action aspirin 81 mg tablet,chewable 1 tab PO DAILY Patient Comments: Chew and swallow 1 tablet by mouth daily starting 04-24-2019 metoprolol tartrate 25 mg tablet 25 mg PO BID pravastatin 80 mg tablet 80 mg PO QHS acetaminophen 500 mg capsule 1,000 mg PO TID bisacodyl [Laxative (bisacodyl)] 10 mg suppository 10 mg NM DAILY PRN (Reason: constipation) furosemide 20 mg tablet 20 mg PO Q OTHER DAY Allergy Relief (loratadine) 10 mg capsule 10 mg PO DAILY melatonin 3 mg capsule 3 mg PO QHS omeprazole 20 mg capsule,delayed release(DR/EC) 20 mg PO DAILY clopidogrel 75 mg tablet 75 mg PO DAILY trazodone 150 mg tablet 150 mg PO QHS cholecalciferol (vitamin D3) 50 mcg (2,000 unit) capsule 2,000 unit PO DAILY ondansetron HCl 4 mg tablet 4 mg PO Q6H Culturelle 10 billion cell capsule 1 cap PO BID cefdinir 300 mg capsule 300 mg PO BID Qty: 1 0RF Rx Instructions: Start on 02/28/2024 ciprofloxacin HCl [Cipro] 500 mg tablet 500 mg PO BID 5 Days Qty: 10 0RF Primary Care Provider: Kendrick Sellers Referrals: Amado Edwards MD [Med Staff - Active Staff] - (office to call to set up surgery) Kendrick Sellers PA [Primary Care Provider] - Activity Restrictions/Additional Instructions: 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 Print Language: French Disposition Disposition: Home, Self Care
--- NOTE | 2024-04-03 11:03 | PCM.CONS.U ---
Assessment & Plan Assessment/Plan (1) Paraphimosis: PLAN: pt can go home with some pain medicine. He is got a chronic Gentile catheter unknown reason why but we will proceed with a outpatient circumcision and a flexible cystoscopy to diagnostically check the bladder. HPI Consult Data Date of Consult: 04/03/24 HPI Narrative Reason for Consultation: Chronic paraphimosis HPI Narrative: MAC AVALOS, is a 73 M who presents to the emergency room with chronic paraphimosis swollen and edematous foreskin I tried at the bedside to reduce it but did not possible to do also extremely painful so after small attempted patient requested I stop trying to reduce it it has been in the state for past months at this point is chronically swollen and stuck there is no spreading strangulation of the glans but his only solution at this point to have a circumcision saw my office get him set up for an outpatient circumcision at [facility]. [facility] Medical History (Updated 04/03/24 @ 11:[address] Amado Edwards MD) Paraphimosis Atrial fibrillation with rapid ventricular response Acute dehydration Nausea and vomiting Hematuria Cataracts, bilateral History of UTI Urinary frequency Nocturia Hematuria Shoulder pain Obesity Prediabetes IBS (irritable bowel syndrome) Hyperlipidemia Orthostatic hypertension HTN (hypertension) History of CVA (cerebrovascular accident) Cervical spine arthritis Cervical spinal stenosis Central apnea HALIE (obstructive sleep apnea) BPH with urinary obstruction Atrial flutter Allergic rhinitis Home Medications ?Medication ?Instructions ?Recorded ?Last Taken ?Type metoprolol tartrate 25 mg tablet 25 mg PO BID 05/01/19 Unknown History aspirin 81 mg chewable tablet 1 tab PO DAILY 05/08/19 Unknown History pravastatin 80 mg tablet 80 mg PO QHS 03/25/20 Unknown History acetaminophen 500 mg capsule 1,000 mg PO TID 02/24/24 Unknown History bisacodyl 10 mg rectal suppository 10 mg SC DAILY PRN constipation 02/24/24 Unknown History (Laxative (bisacodyl)) cholecalciferol (vitamin D3) 50 2,000 unit PO DAILY 02/24/24 Unknown History mcg (2,000 unit) capsule clopidogrel 75 mg tablet 75 mg PO DAILY 02/24/24 Unknown History furosemide 20 mg tablet 20 mg PO Q OTHER DAY 02/24/24 Unknown History loratadine 10 mg capsule (Allergy 10 mg PO DAILY 02/24/24 Unknown History Relief (loratadine)) melatonin 3 mg capsule 3 mg PO QHS 02/24/24 Unknown History omeprazole 20 mg capsule,delayed 20 mg PO DAILY 02/24/24 Unknown History release trazodone 150 mg tablet 150 mg PO QHS 02/24/24 Unknown History Lactobacillus rhamnosus GG 10 1 cap PO BID 02/27/24 Unknown History billion cell capsule (Culturelle) ondansetron HCl 4 mg tablet 4 mg PO Q6H 02/27/24 Unknown History cefdinir 300 mg capsule 300 mg PO BID #1 cap 02/28/24 Unknown Rx ciprofloxacin HCl 500 mg tablet 500 mg PO BID 5 days #10 tabs 04/01/24 Unknown Rx (Cipro) Allergy/AdvReac Type Severity Reaction Status Date / Time tamsulosin (From Flomax) Allergy Unknown Itching Verified 02/27/24 14:35 Family History Mother Breast cancer Colon cancer Father Cardiac disorder Other Myocardial infarction Surgical History History of umbilical hernia repair History of nasal septoplasty History of cystoscopy History of colonoscopy Social History Smoking Status: Never smoker alcohol intake: former substance use type: does not use ROS Constitutional Constitutional: Denies chills, fever(s) or malaise Eyes Eyes: Denies blurry vision or change in vision ENT HEENT: Reports none Cardiovascular Cardiovascular: Denies chest pain or palpitations Respiratory/Chest Respiratory/Chest: Denies cough or shortness of breath with exertion Gastrointestinal Gastrointestinal: Denies abdominal pain, constipation or diarrhea Musculoskeletal Musculoskeletal: Denies back pain, joint stiffness or joint swelling Integumentary Integumentary: Denies dry skin, jaundice, lesions or rash Neurologic Neurologic: Denies confusion, syncope or weakness Psychiatric Psychiatric: Reports none; Denies anxiety or depression Endocrine Endocrinology: Denies excessive sweating, fatigue or flushing Hematologic/Lymphatic Hematologic/Lymphatic: Denies anemia, easy bleeding or easy bruising
[2024-04-03 12:06] VITALS: BP 135/102; PULSE 98; RESP 18; TEMP 36.6; O2SAT 96
== END 2024-04-03 12:13 | disposition home or self-care (01) ==
PROVIDERS: Emergency Provider Emergency Medicine; PCP Physician Assistant; Visit Provider Emergency Medicine
DX: N47.2 Paraphimosis (principal); N40.0 Benign prostatic hyperplasia without lower urinary tract symptoms; K58.9 Irritable bowel syndrome, unspecified; Z79.02 Long term (current) use of antithrombotics/antiplatelets; E78.5 Hyperlipidemia, unspecified; Z80.0 Family history of malignant neoplasm of digestive organs; I10 Essential (primary) hypertension; Z79.82 Long term (current) use of aspirin; Z87.440 Personal history of urinary (tract) infections; Z86.73 Personal history of transient ischemic attack (TIA), and cerebral infarction without residual deficits; G47.33 Obstructive sleep apnea (adult) (pediatric)
CPT/HCPCS: 99284